=== PATIENT | male | born 1950 | race Hispanic/Latino ===

== ENCOUNTER 2019-08-21 06:09 | Day surgery (SDC) | payer BC ==
[2019-08-20 09:04] LABS: Absolute Lymphocytes (CBC) 1.5 K/uL (0.7-4.9); Basophils % 1.1 % (0-1.3); Hematocrit 41.1 % (39.6-49.0); MPV 7.1 fL (7.6-11.3); RBC Red Blood Cell Count 4.92 M/uL (4.33-5.43)
[2019-08-20 09:17] LABS: Potassium 4.5 mmol/L (3.5-5.1)
[2019-08-20 09:19] LABS: Protime INR 0.84
--- NOTE | 2019-08-20 11:17 | EKG ---
Test Date: 2019-08-20 Test Time: 08:52:25 Pool Lifeguard: STEPHANIE MEASUREMENT RESULTS: Intervals: Rate: 70 VA: 178 QRSD: 82 QT: 400 QTc: 432 Valencia: P: 30 VA: 178 QRS: -5 T: 52 INTERPRETIVE STATEMENTS: Normal sinus rhythm Normal ECG Compared to ECG 06/11/2019 12:13:49 No significant changes Electronically Signed On 08-20-19 11:16:02 WEBBING TACKER by Arnav Hardy
[2019-08-21] MEDS ORDERED: LIDOCAINE 1% MPF 30 ML VIAL ONE (06:41)
[2019-08-21] MEDS ORDERED: HEPA 1000U/500MLS 1,000 UNIT/500 ML BAG IV ONE ×2 (06:41→07:26)
[2019-08-21] MEDS ORDERED: HEPARIN 5000 UNIT/ML 1 ML VIAL ONE (06:41)
[2019-08-21] MEDS ORDERED: MIDAZOLAM HCL 2 MG/2 ML INJ ONE ×2 (07:34→07:39)
[2019-08-21] MEDS ORDERED: ATROPINE SULF 1 MG/10 ML SYR IV ONE (07:35)
[2019-08-21] MEDS ORDERED: FENTANYL CITR 100 MCG/2 ML ONE (07:35)
[2019-08-21 10:07] VITALS: BP 150/94; TEMP 97.2; O2SAT 100
--- NOTE | 2019-08-22 04:55 | OP ---
Surgeon: Arnav Hardy MD Greenskeeper: David Berry. Admitted to my service as an outpatient for abdominal angiogram and selective bilateral renal angiogr am. History: Mr. De is a 68-year-old male who had a questionable renal artery stenosis on a renal Dop pler, was scheduled for an abdominal angiogram today as an outpatient. Description Of Procedure: He was brought to the quality assurance qa lab analyst, prepped and draped in the routine sterile fashion. Given Versed and fentanyl for sedation. A 6-Swiss sheath introduced in the right common f emoral artery successfully. Angiography there was normal. StarClose was used to close the case. A pigtail catheter was advanced above the renal artery and the mid abdominal aorta. 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 To confirm that a JR4 was used to selectively inject the renals, both of which were perfectly normal. Complications: There were no complications. Blood Loss: 5 mL. Anesthesia: Total conscious sedation was 30 minutes. 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 Plan: Plan is to continue medical therapy. REKHA/MEI Voice ID: [id number] Report ID: [id number]
== END 2019-08-21 10:28 | disposition home health service (06) ==
LOC: CCL 06:09
DX: N28.0 Ischemia and infarction of kidney (principal); I10 Essential (primary) hypertension
CPT/HCPCS: 93005; 85025; 80048; 36415; 85610; 82947 ×2; 85730; 36200; 36252; C1893; J2250 ×2; J3010; J1644

== ENCOUNTER 2022-09-02 13:03 | Emergency (ER) | payer MEDICARE ==
--- OUTSIDE RECORDS SUMMARY | 2022-09-02 13:07 | XMS REPORT | Continuity of Care Document ---
:1950 Author Organization [facility] t Address [address] Britt [address] [place] [id number] Care Team Providers Name Role Phone Stiven Cristo Marion Attending Clinician Unavailable Alayna_S Attending Clinician Unavailable Sarah Latham Attending Clinician Alayna_Caio Admitting Clinician Unavailable Payers Payer Name Policy Type Policy Number Effective Date Expiration Date S serge [facility] [id number] 2021 (MEDICARE 00:00:00 REPLACEMENT HMO) Problems This patient has no known problems. Allergies, Adverse Reactions, Alerts This patient has no known allergies or adverse reactions. Medications This patient has no known medications. Procedures This patient has no known procedures. Encounters Start End Encounter Admission Attending Care Care Encounter Source Date/Time Date/Time Type Type Clinicians Facility Department ID 2022-08-17 Outpatient Saleem, [facility] [id number] Common 10:49:02 Cristo [facility] 2022-05-17 Outpatient Saleem, [facility] [id number] Common 12:05:17 Cristo [facility] 2022-05-11 Outpatient Saleem, [facility] [id number] Common 09:32:01 Cristo [facility] 2022-04-03 Outpatient Saleem, [facility] [id number] Common 11:20:01 Cristo [facility] 2022-03-14 Outpatient Saleem, [facility] [id number] Common 14:02:02 Cristo [facility] 2022-03-09 Outpatient Saleem, [facility] [id number] Common 14:23:00 Cristo [facility] 2021-09-07 Outpatient Saleem, [facility] [id number] Common 11:14:03 Cristo [facility] 2021-08-16 Outpatient Saleem, [facility] [id number] Common 14:26:22 Cristo [id number] [facility] 2021-08-16 Outpatient Saleem, [facility] [id number] Common 14:08:15 Cristo [id number] [facility] 2021-08-16 Outpatient Saleem, [facility] [id number] Common 14:03:00 Cristo 640[address] [facility] 2021-08-16 Outpatient Saleem, [facility] [id number] Common 14:02:22 Cristo 95596 [facility] 2021-08-16 Outpatient Saleem, [facility] [id number] Common 13:28:53 Cristo 64726 [facility] 2021-08-16 Outpatient Saleem, [facility] [id number] Common 13:08:05 Cristo 667[address] [facility] 2022-06-12 2022-06-12 Outpatient [facility] [id number] Devoted 00[facility]00:00 00:00:00 [id number] [facility] 2022-02-28 2022-02-28 SOCO Smith [id number] CLAC [id number] [facility] 16:30:00 17:30:00 Yeison [id number] [facility] [id number] 2022-02-02 2022-02-02 [facility] [id number] [facility]oted 03:03:00 03:03:00 [id number] [facility] 2021-08-17 2021-08-17 [facility] [id number] [facility] 12:00:00 12:00:00 Medica l Group Results This patient has no known results.
--- NOTE | 2022-09-02 13:24 | ER ---
Nurse's Notes [facility] Name: Mane De Age: 71 yrs Sex: Male : 1950 Arrival Date: 09/02/2022 Time: 13:04 Bed 11 Private MD: Diagnosis: Rash and other nonspecific skin eruption Presentation: 09/02 13:09 Chief complaint: Patient states: has a rash that started about a month ago, its on my ko1 back, legs, right arm, now its starting on my face/ears. Trying to get an appt with dermatology. Feels like ants on my back, I cant sleep. Coronavirus screen: At this time, the client does not indicate any symptoms associated with coronavirus-19. Ebola Screen: No symptoms or risks identified at this time. Initial Sepsis Screen: Does the patient meet any 2 criteria? No. Patient's initial sepsis screen is negative. Does the patient have a suspected source of infection? No. Patient's initial sepsis screen is negative. Risk Assessment: Do you want to hurt yourself or someone else? Patient reports no desire to harm self or others. Onset of symptoms was August 02, 2022 at 08:00. 13:09 Method Of Arrival: Ambulatory ko1 13:09 Acuity: KELLEN 4 ko1 Triage Assessment: 13:11 General: Appears in no apparent distress. comfortable, Behavior is calm, cooperative, ko1 appropriate for age. Pain:. Historical: - Allergies: 13:11 No Known Allergies; ko1 - PMHx: 13:11 Diabetes - NIDDM; Hypertension; TIA; ko1 - Immunization history:: Adult Immunizations up to date, Client reports receiving the 2nd dose of the Covid vaccine, Flu vaccine is up to date. - Social history:: Smoking status: Patient denies any tobacco usage or history of. Screenin:42 [facility] ED Fall Risk Assessment (Adult) Score/Fall Risk Level 0 - 2 = Low Risk ll1 Oriented to surroundings, Maintained a safe environment, Educated pt \T\ family on fall prevention, incl call for assistance when getting out of bed, Hourly rounding (assess needs \T\ fall precautionary measures) done. Abuse screen: Denies threats or abuse. Nutritional screening: No deficits noted. Tuberculosis screening: No symptoms or risk factors identified. Assessment: 13:42 Reassessment: No changes from previously documented assessment. Patient and/or family ll1 updated on plan of care and expected duration. Pain level reassessed. Patient is alert, oriented x 3, equal unlabored respirations, skin warm/dry/pink. Vital Signs: 13:11 BP 157 / 68; Pulse 82; Resp 18; Temp 97.9; Pulse Ox 98% ; Weight 70.31 kg; Height 5 ft. ko1 5 in. (165.10 cm); 13:11 Body Mass Index 25.79 (70.31 kg, 165.10 cm) ko1 ED Course: 13:04 Patient arrived in ED. rg4 13:05 Tomasa Sheldon F[facility]-C [facility] snw 13:05 Manolo Fields MD is Attending Physician. snw 13:11 Triage completed. ko1 13:11 Arm band placed on right wrist. Patient placed in an exam room. ko1 13:24 Sherri Mendoza RN is Primary Nurse. ll1 13:43 Patient has correct armband on for positive identification. Placed in gown. Bed in low ll1 position. Cardiac monitoring not applicable on this patient. 13:43 No provider procedures requiring assistance completed. Patient did not have IV access ll1 during this emergency room visit. Administered Medications: 13:30 Drug: DiFLUcan (fluconazole) 400 mg Route: PO; ll1 13:43 Follow up: Response: No adverse reaction ll1 Medication: 13:43 VIS not applicable for this client. ll1 Outcome: 13:23 Discharge ordered by . snw 13:43 Discharged to home ambulatory. ll1 13:43 Condition: stable 13:43 Discharge instructions given to patient, Instructed on discharge instructions, follow up and referral plans. medication usage, Demonstrated understanding of instructions, follow-up care, medications, Prescriptions given X 2. 13:43 Patient left the ED. ll1 Signatures: Tomasa Sheldon FNP-C FNP-Katelyn Tim rg4 Sherri Mendoza RN RN ll1 Mady Cummins RN RN ko1
--- NOTE | 2022-09-02 13:24 | EDPHYS ---
Physician Documentation [facility] Name: Mane De Age: 71 yrs Sex: Male : 1950 Arrival Date: 09/02/2022 Time: 13:04 Bed 11 Private MD: ED Physician Manolo Fields HPI: 09/02 13:29 This 71 yrs old Male presents to ER via Ambulatory with complaints of Rash. snw 13:29 The patient's rash thought to be caused by Psoriasis fungal component probable. The snw rash is located on the body diffusely. Onset: The symptoms/episode began/occurred 3.5 week(s) ago, and became persistent. Severity of symptoms: At their worst the symptoms were moderate severe. sees Dr. Saleem, has referral to Derm. Unable to sleep at night 2nd to pin prick like sensation. Historical: - Allergies: 13:11 No Known Allergies; ko1 - PMHx: 13:11 Diabetes - NIDDM; Hypertension; TIA; ko1 - Immunization history:: Adult Immunizations up to date, Client reports receiving the 2nd dose of the Covid vaccine, Flu vaccine is up to date. - Social history:: Smoking status: Patient denies any tobacco usage or history of. ROS: 13:29 Constitutional: Negative for fever, chills, and weight loss, Eyes: Negative for injury, snw pain, redness, and discharge, ENT: Negative for injury, pain, and discharge, Neck: Negative for injury, pain, and swelling, Cardiovascular: Negative for chest pain, palpitations, and edema. 13:29 Skin: Positive for rash. Exam: 13:28 Constitutional: This is a well developed, well nourished patient who is awake, alert, snw and in no acute distress. Head/Face: Normocephalic, atraumatic. Eyes: Pupils equal round and reactive to light, extra-ocular motions intact. Lids and lashes normal. Conjunctiva and sclera are non-icteric and not injected. Cornea within normal limits. Periorbital areas with no swelling, redness, or edema. ENT: Nares patent. No nasal discharge, no septal abnormalities noted. Tympanic membranes are normal and external auditory canals are clear. Oropharynx with no redness, swelling, or masses, exudates, or evidence of obstruction, uvula midline. Mucous membranes moist. Neck: Trachea midline, no thyromegaly or masses palpated, and no cervical lymphadenopathy. Supple, full range of motion without nuchal rigidity, or vertebral point tenderness. No Meningismus. Chest/axilla: Normal chest wall appearance and motion. Nontender with no deformity. No lesions are appreciated. 13:28 Respiratory: Lungs have equal breath sounds bilaterally, clear to auscultation and percussion. No rales, rhonchi or wheezes noted. No increased work of breathing, no retractions or nasal flaring. Abdomen/GI: Soft, non-tender, with normal bowel sounds. No distension or tympany. No guarding or rebound. No evidence of tenderness throughout. Back: No spinal tenderness. No costovertebral tenderness. Full range of motion. MS/ Extremity: Pulses equal, no cyanosis. Neurovascular intact. Full, normal range of motion. Neuro: Awake and alert, GCS 15, oriented to person, place, time, and situation. Cranial nerves II-XII grossly intact. Motor strength 5/5 in all extremities. Sensory grossly intact. Cerebellar exam normal. Normal gait. Psych: Awake, alert, with orientation to person, place and time. Behavior, mood, and affect are within normal limits. 13:28 Cardiovascular: Rate: normal, Pulses: no pulse deficits are appreciated, Heart sounds: murmur, systolic, grade 2 over 6. 13:28 Skin: Appearance: normal except for affected area, pityriasis rosea, ringworm, and is diffusely located, hemoglobin A1C 6.5 per report. Vital Signs: 13:11 BP 157 / 68; Pulse 82; Resp 18; Temp 97.9; Pulse Ox 98% ; Weight 70.31 kg; Height 5 ft. ko1 5 in. (165.10 cm); 13:11 Body Mass Index 25.79 (70.31 kg, 165.10 cm) ko1 MDM: 13:16 Patient medically screened. snw 13:31 Differential diagnosis: impetigo, varicella, allergic reaction, psoriasis, fungal. Data snw reviewed: vital signs, nurses notes. Counseling: I had a detailed discussion with the patient and/or guardian regarding: the historical points, exam findings, and any diagnostic results supporting the discharge/admit diagnosis, the presence of at least one elevated blood pressure reading (>120/80) during this emergency department visit, the need for outpatient follow up, for definitive care, to return to the emergency department if symptoms worsen or persist or if there are any questions or concerns that arise at home. Special discussion: I have referred the patient to see his PCP for further evaluation of high blood pressure. Based on the history and exam findings, there is no indication for further emergent testing or inpatient evaluation. I discussed with the patient/guardian the need to see the regional safety manager for further evaluation of the symptoms. I discussed with the patient/guardian the need to see the primary care provider for further evaluation of the symptoms. Administered Medications: 13:30 Drug: DiFLUcan (fluconazole) 400 mg Route: PO; ll1 13:43 Follow up: Response: No adverse reaction ll1 Disposition Summary: 09/02/22 13:23 Discharge Ordered Location: Home snw Condition: Stable snw Diagnosis - Rash and other nonspecific skin eruption snw Followup: snw - With: Emergency Department - When: As needed - Reason: Worsening of condition Followup: snw - With: Private Physician - When: 2 - 3 days - Reason: Recheck today's complaints, Continuance of care, Re-evaluation by your physician Discharge Instructions: - Discharge Summary Sheet snw - Rash, Adult snw Forms: - Medication Reconciliation Form snw - Thank You Letter snw - Antibiotic Education snw - Prescription Opioid Use snw Prescriptions: - Hydroxyzine HCl 25 mg Oral Tablet - take 1 tablet by ORAL route At bedtime As needed; 30 tablet; Refills: 0, snw Product Selection Permitted - Fluconazole 150 mg Oral Tablet - take 1 tablet by ORAL route once daily; 15 tablet; Refills: 0, Product snw Selection Permitted Signatures: Tomasa Sheldon, LEAD BI DEVELOPER-C LEAD BI DEVELOPER-Csnw Sherri Mendoza, RN RN ll1 Mady Cummins, RN RN ko1
[2022-09-02] MEDS ORDERED: FLUCONAZOLE 100 MG TAB ONE (13:29)
[2022-09-02 13:59] VITALS: BP 157/68; TEMP 97.9; O2SAT 98
== END 2022-09-02 13:43 | disposition home or self-care (01) ==
LOC: ER 13:03
DX: R21 Rash and other nonspecific skin eruption (principal); I10 Essential (primary) hypertension
CPT/HCPCS: 99283

== ENCOUNTER 2023-11-14 07:03 | Day surgery (SDC) | payer MEDICARE ==
[2023-11-05 10:22] LABS: Absolute Eosinophils 0.1 K/uL (0-0.5); Absolute Lymphocytes (CBC) 1.2 K/uL (0.7-4.9); Absolute Monocytes 0.3 K/uL (0.1-1.3); Absolute Neutrophil 2.2 K/uL (1.8-8.0); Basophils % 1.3 % (0-1.3); Eosinophils % 3.7 % (0-4.4); Hematocrit 30.7 % (39.6-49.0); Hemoglobin 10.4 g/dL (13.6-17.9); Lymphocytes % 30.1 % (15.3-44.8); MCH 29.9 pg (27.0-35.0); MCV 87.9 fL (80-100); Monocytes % 7.7 % (3.3-12.3); Neutrophils % 57.2 % (41.7-73.7); Nucleated Red Blood Cells % 0.1 % (0-0); Platelets 279 thou/uL (152-406); RBC Red Blood Cell Count 3.49 M/uL (4.33-5.43); Red Cell Distribution Width 13.9 % (12.1-15.2)
[2023-11-05 10:23] LABS: PT Prothrombin Time 10.5 SECONDS (9.5-12.5); Protime INR 0.95
[2023-11-05 10:30] LABS: Anion Gap 9.2 mEq/L (5.0-15.0); Potassium 4.2 mEq/L (3.5-5.1)
--- NOTE | 2023-11-05 10:36 | RAD REPORT ---
EXAM DESCRIPTION: RAD - Chest Pa And Lat (2 Views) - 11/05/2023 10:25 am CLINICAL HISTORY: pre op pending urolift and meatal dilations Chest pain. COMPARISON: Chest Pa And Lat (2 Views) dated 06/11/2019; Chest Pa And Lat (2 Views) dated 04/26/2017; CHEST SINGLE VIEW dated 11/24/2009; CHEST PA AND LAT 2 VIEW dated 11/19/2007 FINDINGS: The lungs are clear. The heart is normal in size. No displaced fractures. IMPRESSION: No acute or concerning finding suspected.
[2023-11-14] MEDS: NA CHLORIDE 0.9% 1,000 ML ONE (07:30)
[2023-11-14] MEDS ORDERED: LIDOCAINE 1% MPF 5 ML VIAL ONE (07:53)
[2023-11-14] MEDS ORDERED: propofoL 200 MG/20 ML VIAL IV ONE (07:53)
[2023-11-14] MEDS ORDERED: FENTANYL CITR 100 MCG/2 ML ONE (07:54)
[2023-11-14] MEDS ORDERED: MIDAZOLAM HCL 2 MG/2 ML INJ ONE (07:54)
[2023-11-14] MEDS: CEFAZOLIN SODIUM 1 GM/VIAL ONE (08:30)
[2023-11-14] MEDS ORDERED: ONDANSETRON 4 MG/2 ML VIAL ONE (08:39)
[2023-11-14] MEDS ORDERED: dexAMETHasone 10 MG/ML VIAL ONE (08:39)
[2023-11-14] MEDS: CODEINE 30MG/APAP 300MG TAB PO PRN (10:14)
[2023-11-14] MEDS: PHENAZOPYRIDINE 100MG TAB PO ONE (10:14)
[2023-11-14] MEDS ORDERED: CODEINE 30MG/APAP 300MG TAB ONE (10:17)
[2023-11-14] MEDS ORDERED: PHENAZOPYRIDINE 100MG TAB PO ONE ×2 (10:17→10:51)
[2023-11-14] MEDS ORDERED: CODEINE 30MG/APAP 300MG TAB PO PRN (10:51)
[2023-11-14 12:08] VITALS: BP 142/51; TEMP 97; O2SAT 96
--- NOTE | 2023-11-14 17:29 | EKG ---
Test Date: 2023-11-05 Test Time: 09:56:11 Smelter Operator: TRESA MEASUREMENT RESULTS: Intervals: Rate: 71 MN: 186 QRSD: 96 QT: 404 QTc: 439 Berry: P: 39 MN: 186 QRS: 4 T: 63 INTERPRETIVE STATEMENTS: Normal sinus rhythm with sinus arrhythmia Normal ECG Compared to ECG 08/20/2019 08:52:25 No significant changes Electronically Signed On 11-14-23 16:55:26 CDT by Julio Cesar Cole
--- NOTE | 2023-11-14 19:46 | OP ---
Surgeon: CAMELIA JOSÉ Preoperative Diagnosis: 1.Meatal stenosis. 2.BPH with obstruction/LUTS. Postoperative Diagnoses: 1.Meatal stenosis. 2.BPH with obstruction/LUTS. Principal Procedure: 1.Meatal dilation using sounds. 2.Meatotomy. 3.Cystoscopy and prostatic urethral lift/UroLift with 3 implants placed. Indication For Procedure: Mr. De presented to the Urology Clinic with obstructive LUTS refractory to attempts at medical therapy. He was found to have significant meatal stenosis and a degree of re sidual apical mid gland obstruction despite his history of a TURP or GreenLight PVP. As a result, he was counseled on the need to manage the obstruction due to the meatus and would also potentially rodolfo efit from additional management of the residual apical mid gland obstruction. Procedure In Detail: The patient was consented in the preoperative holding area before being transfe rred to the operative suite where general anesthesia was induced. He was given Ancef 1 g IV antimicr obial prophylaxis, and pneumo boots were provided for DVT prophylaxis. He was placed in the lithotom y position, padded and secured to the table appropriately. His genitalia were prepped with Hibiclens and he was draped in standard fashion. The case was begun attempting to pass the 20-Greek cystosco pe, but the meatus was completely stenotic. As a result, I utilized urethral sounds to dilate the me atus from 14-Greek to 26-Greek. I assessed during the period of dilation where the point of obstru ction was noting it to be in the ventral meatus extending into the fossa navicularis. As a result, I employed straight snaps extending about half a cm into the ventral aspect of the meatus and urethra to generate a region of crushed tissue hemostasis. I then incised the crushed tissue in between ulti mately opening the meatus, and making it widely patent such that passage of a 28-Greek sound went wi thout obstruction and with ease. Once I was satisfied with the patency of the meatus, I then placed the 20-Greek UroLift sheath with a visual obturator via the urethra and into his bladder. I decompr essed his bladder of fluid and urine and then surveyed the prostatic urethral channel. As previously indicated, there was patency at the bladder neck from prior resection but regrowth or residual adeno ma in the apical mid gland intraurethrally intruding and kissing with slight interdigitation. As a r esult, I switched the visual obturator for a UroLift delivery device and the first implant. I target ed the patient's left lateral wall in the apex of the prostate just proximal to the verumontanum wher e the tissue was most prominent. I manipulated the tissue in order to grasp the intraluminally proje cting component and ultimately angling the scope about 10 to 15 degrees laterally, I pulled the yanelis er the first time delivering the needle through the substance of the prostate before angling the scop e an additional 15 to 20 degrees laterally to compress that tissue and ensure the tip of the needle s ituated outside of the capsular surface. I then pulled the trigger a second time delivering the caps ular tab and partially retracting the needle before pulling the trigger a third time to completely re tract the needle and tension the suture. I then brought the scope back toward the midline and advanc ed it 2 to 3 mm toward the bladder neck opening before well until the white line of the monofilament was situated in the delivery bay, and then I pulled the trigger fourth time, tailoring the suture and deploying the urethral end piece. This did nicely lateralize that intruding tissue in the apical mi d gland on the left. I then turned my attention to the patient's right side and a similarly position ed intraluminally projecting adenoma, and I was able to place an additional implant using the same se quence of steps this time on the right at around the 10 o'clock position. This did beautifully later jagjit the tissue in that position. I then surveyed the channel created using a visual obturator and there was some anterolateral tissue intrusion coming from the patient's left side; so I placed an add itional implant in a stacked fashion on the patient's left above the prior placed implant beautifully elevating the tissue in that location and creating a beautiful continuous anterior channel visible f rom the verumontanum into the bladder neck without any obstruction and the bladder completely decompr essed. As a result, I retrograde filled his bladder with saline before removing the scope and then p assed a 20-Greek urethral Lynn catheter into his bladder with ease. About 15 cc of sterile water w ere placed in the balloon, and the catheter was allowed to decompress and connected to a leg bag. Th e patient was then taken out of the lithotomy position, awakened from general anesthesia, transferred to a stretcher, and then transferred to the recovery room in good condition. Complications: None. Discharge Disposition: He will be instructed on catheter care and maintenance and to cleanse around the meatus with dilute hydrogen peroxide or soap and water at least twice a day, applying Neosporin o r triple antibiotic ointment around the meatus liberally twice a day over the next several days. I w ould like for him to keep the catheter through the weekend and it may be removed on Saturday or Saturday of next week. I have given him a prescription for Bactrim Double Strength tablets for 5 days to cov er him the duration of having the catheter in place and because of the meatotomy performed. He may h ave a voiding trial as I indicated on Saturday and Saturday, and subsequent followup should be establish ed with me in approximately 1 month per routine. BRISEYDA/MEI Voice ID: [id number] Report ID: [id number]
== END 2023-11-14 11:10 | disposition home or self-care (01) ==
LOC: OR 07:03
PROVIDERS: ATTEND Urology
PROC: 0T7D8DZ Dilation of Urethra with Intraluminal Device, Via Natural or Artificial Opening Endoscopic (ICD-10-PCS; principal; 2023-11-14 08:15)
DX: N35.911 Unspecified urethral stricture, male, meatal (principal); N40.1 Benign prostatic hyperplasia with lower urinary tract symptoms; N13.8 Other obstructive and reflux uropathy
CPT/HCPCS: 36415; 71046; 80048; 82947; 85025; 85610; 87086; 87088; 93005; J0690; J1100; J2001; J2250; J2405; J2704; J3010; J7030

== ENCOUNTER 2024-10-07 19:18 | Inpatient (IN) | payer OTHER ==
--- OUTSIDE RECORDS SUMMARY | 2024-10-07 19:22 | XMS REPORT | Continuity of Care Document ---
Author Name Unknown Address [address] [facility] [address] [place] [address] [facility] [place] Address [address] [facility] [address] [place] [address] Care Team Providers Care Service Line Layer Name Role Phone Cristo Saleem Attending Clinician Unavailable Trisha Catalan Attending Clinician Emily Attending Clinician Unavailable Sarah Latham Attending Clinician [phone] Emily Admitting Clinician Unavailable Payers Payer Name Policy Type Policy Number Effective Date Expirati on Date Source [employer] (MEDICARE REPLACEMENT HMO) [id number] 00:00:00 Problems Condition Name Condition Details Condition Category Status Onset Date Resolution Date Last Treatment Date Treating Clinician Comments Source [id number] 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 Problem Common [facility] Enlarged prostate Enlarged prostate Problem Common [facility] Obstructiv e uropathy Other obstructiv e and reflux uropathy Problem Common [facility] [id number] Tobacco use disorder, continuous Problem Common [facility] [id number] Type 2 diabetes mellitus with hyperglyce zeferino, unspecifie d whether residential insulin use Problem Common [facility] [id number] Mixed hyperlipid emia Problem Common [facility] [id number] Asymptomat ic hypertensi ve urgency Problem Common [facility] [id number] Erectile dysfunctio n, unspecifie d erectile dysfunctio n type Problem [facility] [id number] Benign essential HTN Problem [facility] Cigarette smoker Cigarette smoker Problem [facility] Anemia in chronic kidney disease Anemia in chronic kidney disease Problem [facility] Chronic anemia Anemia in other chronic diseases classified elsewhere Problem [facility] Iron deficiency anemia due to chronic blood loss Iron deficiency anemia due to chronic blood loss Problem [facility] [id number] Benign prostatic hyperplasi a with lower urinary tract symptoms Problem [facility] [id number] Chronic kidney disease, stage 3a Problem [facility] [id number] Noncomplia nce with dietary restrictio n Problem [facility] [id number] Type 2 diabetes mellitus with diabetic chronic kidney disease Problem [facility] [id number] Type 2 diabetes mellitus with other diabetic kidney complicati on Problem [facility] [id number] Indirect left inguinal hernia Problem [facility] [id number] History of urethral stricture Problem [facility] [id number] OAB (overactiv e bladder) Problem [facility] [id number] Urge incontinen ce Problem [facility] [id number] ED (erectile dysfunctio n) of organic origin Problem [facility] Anemia Anemia, unspecifie d type Problem [facility] Social History Social Habit Start Date Stop Date Quantity Comments Source History of Tobacco Use Current Smoker [facility] Sex Assigned At [facility] Smoking Status Start Date Stop Date Source Current Smoker 2024-07-14 00:00:00 [facility] Medications Ordered Medication Name Filled Medication Name Start Date Stop Date Current Medication? Ordering Clinician Indication Dosage Frequency Signature (SIG) Comments Components Source Myrbetriq 25 MG Myrbetriq 25 MG 2023-07 00:00: 00 No 1{table t} QD Myrbetriq 25 MG Varenicline Tartrate 1 MG Varenicline Tartrate 1 MG 2022-07 1-15 00:00: 00 No 1{table t} BID Vareniclin e Tartrate 1 MG FreeStyle Precision Zack Test - FreeStyle Precision Zack Test - 2021-07 0-03 00:00: 00 No QD FreeStyle Precision Zack Test - FreeStyle Jayme 2 [place] - FreeStyle Jayme 2 [place] - 2021-07 0-03 00:00: 00 No FreeStyle Jayme 2 [place] - [place] Soluspan (Betamethas one) [place] Soluspan (Betamethas one) 9-13 00:00: 00 No 6mg [facility] Lidocaine Lidocaine 9-13 00:00: 00 No 10mg [facility] Cyanocobala min Cyanocobala min 7-25 00:00: 00 No 1000ug [facility] metformin hcl er 500 mg tablet er 24 hr metformin hcl er 500 mg tablet er 24 hr Yes [facility] glimepiride 4 mg tablet glimepiride 4 mg tablet Yes [facility] losartan potassium-h ctz 100-12.5 mg tablet losartan potassium-h ctz 100-12.5 mg tablet Yes [facility] Losartan Potassium-H CTZ 100-12.5 MG Losartan Potassium-H CTZ 100-12.5 MG No 1{table t} QD Losartan Potassium- HCTZ 100-12.5 MG Tadalafil 20 MG Tadalafil 20 MG No Tadalafil 20 MG amLODIPine Besylate 10 MG amLODIPine Besylate 10 MG No 1{table t} QD amLODIPine Besylate 10 MG metFORMIN HCl ER 500 MG metFORMIN HCl ER 500 MG No BID metFORMIN HCl ER 500 MG Rosuvastati n Calcium 20 MG Rosuvastati n Calcium 20 MG No 1{table t} QD Rosuvastat in Calcium 20 MG FreeStyle Jayme 2 Sensor - FreeStyle Jayme 2 Sensor - No FreeStyle Jayme 2 Sensor - Glimepiride 4 MG Glimepiride 4 MG No Glimepirid e 4 MG Ozempic (1 MG/DOSE) 4 MG/3ML Ozempic (1 MG/DOSE) 4 MG/3ML No Ozempic (1 MG/DOSE) 4 MG/3ML Creon [id number] 0 UNIT Creon [id number] 0 UNIT No Creon [id number] 00 UNIT Jardiance 25 MG Jardiance 25 MG No 1{table t} QD Jardiance 25 MG Hydrocortis one 2.5 % Hydrocortis one 2.5 % No Hydrocorti sone 2.5 % Tamsulosin HCl 0.4 MG Tamsulosin HCl 0.4 MG No Tamsulosin HCl 0.4 MG rosuvastati n calcium 20 mg tablet rosuvastati n calcium 20 mg tablet Yes [facility] varenicline tartrate (starter) 0.5 mg x 11 & 1 mg x 42 tab ther pack varenicline tartrate (starter) 0.5 mg x 11 & 1 mg x 42 tab ther pack Yes [facility] amlodipine besylate 10 mg tablet amlodipine besylate 10 mg tablet Yes [facility] tamsulosin hcl 0.4 mg capsule tamsulosin hcl 0.4 mg capsule Yes [facility] JARDIANCE 10 MG TABLET JARDIANCE 10 MG TABLET Yes [facility] Immunizations Ordered Immunization Name Filled Immunization Name Date Status Comments Source Prevnar 20 (PCV20) Prevnar 20 (PCV20) Unknown Completed [facility] Fluad (aIIV4) - SDS - 0.5mL Fluad (aIIV4) - SDS - 0.5mL Unknown Completed [facility] FLUZONE HIGH DOSE OVER 65 FLUZONE HIGH DOSE OVER 65 Unknown Completed [facility] Prevnar 20 (PCV20) Prevnar 20 (PCV20) Unknown Completed [facility] Fluad (aIIV4) - SDS - 0.5mL Fluad (aIIV4) - SDS - 0.5mL Unknown Completed [facility] FLUZONE HIGH DOSE OVER 65 FLUZONE HIGH DOSE OVER 65 Unknown Completed [facility] Prevnar 20 (PCV20) Prevnar 20 (PCV20) Unknown Completed [facility] Fluad (aIIV4) - SDS - 0.5mL Fluad (aIIV4) - SDS - 0.5mL Unknown Completed [facility] FLUZONE HIGH DOSE OVER 65 FLUZONE HIGH DOSE OVER 65 Unknown Completed [facility] Prevnar 20 (PCV20) Prevnar 20 (PCV20) Unknown Completed [facility] Fluad (aIIV4) - SDS - 0.5mL Fluad (aIIV4) - SDS - 0.5mL Unknown Completed [facility] FLUZONE HIGH DOSE OVER 65 FLUZONE HIGH DOSE OVER 65 Unknown Completed [facility] Prevnar 20 (PCV20) Prevnar 20 (PCV20) Unknown Completed [facility] Fluad (aIIV4) - SDS - 0.5mL Fluad (aIIV4) - SDS - 0.5mL Unknown Completed [facility] FLUZONE HIGH DOSE OVER 65 FLUZONE HIGH DOSE OVER 65 Unknown Completed [facility] Prevnar 20 (PCV20) Prevnar 20 (PCV20) Unknown Completed [facility] Fluad (aIIV4) - SDS - 0.5mL Fluad (aIIV4) - SDS - 0.5mL Unknown Completed [facility] FLUZONE HIGH DOSE OVER 65 FLUZONE HIGH DOSE OVER 65 Unknown Completed [facility] Prevnar 20 (PCV20) Prevnar 20 (PCV20) Unknown Completed [facility] Fluad (aIIV4) - SDS - 0.5mL Fluad (aIIV4) - SDS - 0.5mL Unknown Completed [facility] FLUZONE HIGH DOSE OVER 65 FLUZONE HIGH DOSE OVER 65 Unknown Completed [facility] Prevnar 20 (PCV20) Prevnar 20 (PCV20) Unknown Completed [facility] Fluad (aIIV4) - SDS - 0.5mL Fluad (aIIV4) - SDS - 0.5mL Unknown Completed [facility] FLUZONE HIGH DOSE OVER 65 FLUZONE HIGH DOSE OVER 65 Unknown Completed [facility] Prevnar 20 (PCV20) Prevnar 20 (PCV20) Unknown Completed [facility] Fluad (aIIV4) - SDS - 0.5mL Fluad (aIIV4) - SDS - 0.5mL Unknown Completed [facility] FLUZONE HIGH DOSE OVER 65 FLUZONE HIGH DOSE OVER 65 Unknown Completed [facility] Fluad (aIIV4) - SDS - 0.5mL Fluad (aIIV4) - SDS - 0.5mL Unknown Completed [facility] Prevnar 20 (PCV20) Prevnar 20 (PCV20) Unknown Completed [facility] Fluad (aIIV4) - SDS - 0.5mL Fluad (aIIV4) - SDS - 0.5mL Unknown Completed [facility] FLUZONE HIGH DOSE OVER 65 FLUZONE HIGH DOSE OVER 65 Unknown Completed [facility] Vital Signs Vital Name Observation Time Observation Value Comments S serge height 2024-07-14 09:45:00 65 [in_i] Commo n [facility] weight 2024-07-14 09:45:00 138 [lb_av] Comm on [facility] temperature 2024-07-14 09:45:00 97.8 [degF] Com [facility] bmi 2024-07-14 09:45:00 22.96 kg/m2 Comm on [facility] oximetry 2024-07-14 09:45:00 [facility] 2024-07-14 09:45:00 18 /min [facility] blood pressure systolic 2024-07-14 09:45:00 130 mm[Hg] [facility] blood pressure diastolic 2024-07-14 09:45:00 54 mm[Hg] [facility] height 2024-06-24 09:00:00 65 [in_i] Commo n [facility] weight 2024-06-24 09:00:00 137 [lb_av] Comm on [facility] temperature 2024-06-24 09:00:00 98.1 [degF] Com [facility] bmi 2024-06-24 09:00:00 22.8 kg/m2 Commo n [facility] oximetry 2024-06-24 09:00:00 99 % Commo n [facility] respiratory rate 2024-06-24 09:00:00 18 /min Common [facility] blood pressure systolic 2024-06-24 09:00:00 132 mm[Hg] [facility] blood pressure diastolic 2024-06-24 09:00:00 68 mm[Hg] [facility] height 2024-04-01 11:00:00 65 [in_i] Commo n [facility] weight 2024-04-01 11:00:00 131.4 [lb_av] Co mmon [facility] temperature 2024-04-01 11:00:00 97.6 [degF] Com [facility] bmi 2024-04-01 11:00:00 21.86 kg/m2 Comm on [facility] oximetry 2024-04-01 11:00:00 97 % Commo n [facility] blood pressure systolic 2024-04-01 11:00:00 132 mm[Hg] [facility] blood pressure diastolic 2024-04-01 11:00:00 72 mm[Hg] [facility] height 2024-04-01 11:00:00 65 [in_i] Commo n [facility] weight 2024-04-01 11:00:00 131.4 [lb_av] Co mmon [facility] temperature 2024-04-01 11:00:00 97.6 [degF] Com [facility] bmi 2024-04-01 11:00:00 21.86 kg/m2 Comm on [facility] oximetry 2024-04-01 11:00:00 97 % Commo n [facility] blood pressure systolic 2024-04-01 11:00:00 132 mm[Hg] Common [facility] blood pressure diastolic 2024-04-01 11:00:00 72 mm[Hg] [facility] height 2023-12-31 09:20:00 65 [in_i] Commo n [facility] weight 2023-12-31 09:20:00 142.2 [lb_av] Co mmon [facility] temperature 2023-12-31 09:20:00 97.2 [degF] Com [facility] bmi 2023-12-31 09:20:00 23.66 kg/m2 Comm on [facility] oximetry 2023-12-31 09:20:00 97 % Commo n [facility] blood pressure systolic 2023-12-31 09:20:00 118 mm[Hg] Common [facility] blood pressure diastolic 2023-12-31 09:20:00 52 mm[Hg] Common [facility] height 2023-12-31 09:20:00 65 [in_i] Commo n [facility] weight 2023-12-31 09:20:00 142.2 [lb_av] Co [facility] temperature 2023-12-31 09:20:00 97.2 [degF] Com [facility] bmi 2023-12-31 09:20:00 23.66 kg/m2 Comm on [facility] oximetry 2023-12-31 09:20:00 97 % Commo n [facility] blood pressure systolic 2023-12-31 09:20:00 118 mm[Hg] [facility] blood pressure diastolic 2023-12-31 09:20:00 52 mm[Hg] [facility] height 2023-12-23 10:45:00 65 [in_i] Commo n [facility] weight 2023-12-23 10:45:00 148.2 [lb_av] Co mmon [facility] temperature 2023-12-23 10:45:00 96.8 [degF] Com mon [facility] bmi 2023-12-23 10:45:00 24.66 kg/m2 Comm on [facility] oximetry 2023-12-23 10:45:00 97 % Commo n [facility] respiratory rate 2023-12-23 10:45:00 18 /min Common [facility] blood pressure systolic 2023-12-23 10:45:00 142 mm[Hg] [facility] blood pressure diastolic 2023-12-23 10:45:00 71 mm[Hg] [facility] height 2023-10-23 10:30:00 65 [in_i] Commo n [facility] weight 2023-10-23 10:30:00 137.8 [lb_av] Co mmon [facility] temperature 2023-10-23 10:30:00 97.8 [degF] Com [facility] bmi 2023-10-23 10:30:00 22.93 kg/m2 Comm on [facility] oximetry 2023-10-23 10:30:00 99 % Commo n [facility] respiratory rate 2023-10-23 10:30:00 18 /min [facility] blood pressure systolic 2023-10-23 10:30:00 155 mm[Hg] [facility] blood pressure diastolic 2023-10-23 10:30:00 67 mm[Hg] Common [facility] height 2023-08-19 10:20:00 65 [in_i] Commo n [facility] weight 2023-08-19 10:20:00 135.0 [lb_av] Co mmon [facility] temperature 2023-08-19 10:20:00 98.0 [degF] Com mon [facility] bmi 2023-08-19 10:20:00 22.46 kg/m2 Comm on [facility] oximetry 2023-08-19 10:20:00 99 % Commo n [facility] respiratory rate 2023-08-19 10:20:00 18 /min Common [facility] blood pressure systolic 2023-08-19 10:20:00 138 mm[Hg] Common [facility] blood pressure diastolic 2023-08-19 10:20:00 70 mm[Hg] Common [facility] height 2023-08-08 16:45:00 65 [in_i] Commo n [facility] weight 2023-08-08 16:45:00 139.6 [lb_av] Co mmon [facility] temperature 2023-08-08 16:45:00 98.3 [degF] Com mon [facility] bmi 2023-08-08 16:45:00 23.23 kg/m2 Comm on [facility] oximetry 2023-08-08 16:45:00 97 % Commo n [facility] respiratory rate 2023-08-08 16:45:00 18 /min [facility] blood pressure systolic 2023-08-08 16:45:00 142 mm[Hg] [facility] blood pressure diastolic 2023-08-08 16:45:00 68 mm[Hg] [facility] Procedures Procedure Date / Time Performed Performing Clinicia n Source PVR 2024-06-24 00:00:00 Common S [facility] PVR 2023-12-23 00:00:00 [facility] PVR 2023-08-08 00:00:00 [facility] Encounters Start Date/Time End Date/Time Encounter Type Admission Type Attending Clinicians Care Facility Care Department Encounter ID Source 2024-09-01 16:12:[address] [facility] [id number] [facility] 2024-07-14 10:27:00 Outpatient Saleem, Cristo [facility] [id number] [facility] 2024-03-30 16:24:00 Outpatient Saleem, Cristo [facility] [id number] [facility] 2023-08-15 13:29:01 Outpatient Saleem, Cristo [facility] [id number] [facility] 2023-08-08 16:13:00 Outpatient Saleem, Cristo [facility] [id number] [facility] 2023-05-15 14:39:00 Outpatient Saleem, Cristo [facility] [id number] [facility] 2023-04-12 16:51:00 Outpatient Saleem, Cristo [facility] [id number] [facility] 2023-02-12 08:57:00 Outpatient Saleem, Cristo [facility] [id number] [facility] 2022-11-07 10:35:00 Outpatient Saleem, Cristo [facility] [id number] [facility] 2022-08-17 10:49:02 Outpatient Saleem, Cristo [facility] [id number] [facility] 2022-05-17 12:05:17 Outpatient Saleem, Cristo [facility] [id number] [facility] 2022-05-11 09:32:01 Outpatient Saleem, Cristo [facility] [id number] [facility] 2022-04-03 11:20:01 Outpatient Saleem, Cristo [facility] [id number] [facility] 2022-03-14 14:02:02 Outpatient Saleem, Cristo [facility] [id number] [facility] 2022-03-09 14:23:00 Outpatient Saleem, Cristo [facility] [id number] [facility] 2021-09-07 11:14:03 Outpatient Saleem, Cristo [facility] [id number] [facility] 2021-08-16 14:26:22 Outpatient Saleem, Cristo [facility] [id number] [facility] 2021-08-16 14:08:15 Outpatient Saleem, Cristo [facility] [id number] [facility] 2021-08-16 14:03:00 Outpatient Saleem, Cristo STLC [facility] [id number] [facility] 2021-08-16 14:02:22 Outpatient Saleem, Cristo STLC [facility] [id number] [facility] 2021-08-16 13:28:53 Outpatient Saleem, Cristo [facility] [id number] [facility] 2021-08-16 13:08:05 Outpatient Saleem, Cristo [facility] [id number] [facility] 2024-09-01 00:00:00 2024-09-01 00:00:00 (TEL) [facility]C [facility] [id number] [facility] 2024-08-27 00:00:00 2024-08-27 00:00:00 (TEL) [facility] [id number] [facility] 2024-07-14 00:00:00 2024-07-14 00:00:00 (TEL) [facility]C [facility] [id number] [facility] 2024-07-14 00:00:00 2024-07-14 00:00:00 OFFICE VISIT ESTAB PT LEVEL 4 [facility] [id number] [facility] 2024-06-24 00:00:00 2024-06-24 00:00:00 OFFICE VISIT ESTAB PT LEVEL 4 [facility] [id number] [facility] 2024-06-22 00:00:00 2024-06-22 00:00:00 (TEL) ST[facility]C [facility] [id number] [facility] 2024-05-26 10:30:00 2024-05-26 11:00:00 D2Me Check-in Sera Iyanoye [id number] [address] [place] [address] 2024-05-04 00:00:00 2024-05-04 00:00:00 (TEL) STLMLC [facility] [id number] [facility] 2024-04-22 00:00:00 2024-04-22 00:00:00 (TEL) [facility]C [facility] [id number] [facility] 2024-04-21 00:00:00 2024-04-21 00:00:00 (TEL) ST[facility]C [facility] [id number] [facility] 2024-04-20 00:00:00 2024-04-20 00:00:00 (TEL) ST[facility]MLC [facility] [id number] [facility] 2024-04-07 00:00:00 2024-04-07 00:00:00 (TEL) STLMLC [facility] [id number] [facility] 2024-04-03 00:00:00 2024-04-03 00:00:00 (TEL) ST[facility]MLC ST[facility] [id number] [facility] 2024-04-01 00:00:00 2024-04-01 00:00:00 OFFICE VISIT ESTAB PT LEVEL 4 [facility] [id number] [facility] 2024-04-01 00:00:00 2024-04-01 00:00:00 (TEL) STLMLC ST[facility] [id number] [facility] 2024-01-20 00:00:00 2024-01-20 00:00:00 (TEL) ST[facility]C [facility] [id number] [facility] 2024-01-15 00:00:00 2024-01-15 00:00:00 (TEL) STLMLC ST[facility] [id number] [facility] 2023-12-31 00:00:00 2023-12-31 00:00:00 OFFICE VISIT ESTAB PT LEVEL 4 [facility] [id number] [facility] 2023-12-31 00:00:00 2023-12-31 00:00:00 SUB ANNUAL [facility] VISIT [facility] [id number] [facility] 2023-12-23 00:00:00 2023-12-23 00:00:00 OFFICE VISIT ESTAB PT LEVEL 3 [facility] [id number] [facility] 2023-11-19 00:00:00 2023-11-19 00:00:00 (TEL) STLMLC ST[facility] [id number] [facility] 2023-11-18 00:00:00 2023-11-18 00:00:00 OFFICE VISIT ESTAB PT LEVEL 1 [facility] [id number] [facility] 2023-11-11 00:00:00 2023-11-11 00:00:00 (TEL) STLMLC ST[facility] [id number] [facility] 2023-11-06 00:00:00 2023-11-06 00:00:00 (TEL) STLMLC ST[facility]C [id number] [facility] 2023-10-23 00:00:00 2023-10-23 00:00:00 OFFICE VISIT ESTAB PT LEVEL 4 [facility] [id number] [facility] 2023-10-09 00:00:00 2023-10-09 00:00:00 (TEL) STLMLC ST[facility]C [id number] [facility] 2023-10-09 00:00:00 2023-10-09 00:00:00 (TEL) STLMLC ST[facility]C [id number] [facility] 2023-08-19 00:00:00 2023-08-19 00:00:00 OFFICE VISIT ESTAB PT LEVEL 4 [facility]C ST[facility]C [id number] [facility] 2023-08-08 00:00:00 2023-08-08 00:00:00 OFFICE VISIT ESTAB PT LEVEL 4 [facility] [id number] [facility] 2022-06-12 00:00:00 2022-06-12 00:00:00 Outpatient Iyanoye_S [facility] [id number] [facility] 2022-06-12 00:00:00 2022-06-12 00:00:00 Outpatient Iyanoye_S [facility] [id number] [facility] 2022-06-12 00:00:00 2022-06-12 00:00:00 Outpatient Iyanoye_S [facility] [id number] [facility] 2022-02-28 16:30:00 2022-02-28 17:30:00 SOCO [place] [id number] [id number] [facility] 2022-02-02 03:03:00 2022-02-02 03:03:00 [facility]patient [facility] [id number] [facility] 2021-08-17 12:00:00 2021-08-17 12:00:00 Outpatient [facility] [id number] [facility] Results Test Description Test Time Test Comments Results Result Co mments Source Notes Date/Time Note Provider Source 2024-05-26 10:30:00 ASSESSMENT SUMMARY MANE CENTENO is a 73 year old man seen today by [facility] for a [facility] Visit. Members Preferred Language Belarusian Patient Currently Located in their home state of [place], YES DIAGNOSIS [id number] - Body mass index [BMI] 22.0-22.9, [id number] - Essential (primary) hypertension VISIT PURPOSE, PATIENT'S GOALS, & AGENDA SETTING Annual Wellness Visit with PCP completed this year?: AWV already completed MEDICATION RECONCILIATION Did you review the patient's prescription and non-prescription drugs, vitamins, herbal remedies, and other supplements, AND is the accompanying medication list documented in the medical record?: No GENERAL ASSESSMENT Feet: 5 Inches: 5 Pounds: 135 Patient BMI: 22.46 Dx: Z68.22 - Body mass index [BMI] 22.0-22.9, adult Notes for Z68.22: BMI _22.46__ Your BMI is considered normal. Continue diabetic diet and exercise. Encouraged Mbr to use walking as a form of exercise. Systolic Blood Pressure: 146 Diastolic Blood Pressure: 68 General Assessment Notes: bp lo05-25-2024; 148/68 05-24-2024; 154/76 spoke to mbr about htn program Vaccinations (FLU) Confirm: MEMBER HAS COMPLETED ANNUAL FLU VACCINE: MEMBER CONFIRMED MEDICATION REFILLS Please confirm: Are any of the medications listed above within 30 days of their next fill date, or past due of their next fill date?: No IMMUNODEFICIENCY Does patient CURRENTLY take a drug that suppresses the immune system?: No SKIN - Ulcers Does patient CURRENTLY have a skin ulcer?: No COMMON DIAGNOSES The patient has a diagnosis of hypertension: Yes In addition to hypertension, the patient has the following condition(s): None of These Dx: I10 - Essential (primary) hypertension Notes for I10: Compliant with: losartan-hctz Current blood pressure noted to be uncontrolled today Denies s/s of chest pain, Counseled on maintaining a low sodium diet and increased exercise regimen as tolerated Referred to htn program HTN managed by PCPDISCUSSED: Educated patient on lifestyle modifications such as diet and exercise to improve blood pressureDISCUSSED: Educated patient on importance of medication adherence for blood pressure control APPOINTMENT CPT CODE* Please indicate how this visit was conducted: Telephone Visit Time: More than 20 minutes Trisha Catalan [facility], [place]
[2024-10-07] MEDS ORDERED: ACETAMINOPHEN 500 MG TAB ONE (19:46)
[2024-10-07] MEDS ORDERED: ONDANSETRON 4 MG/2 ML VIAL ONE ×2 (19:46→23:20)
[2024-10-07] MEDS ORDERED: NA CHLORIDE 0.9% 1,000 ML ONE (19:47)
[2024-10-07] MEDS ORDERED: MORPHINE 4 MG/ML SYR ONE (19:47)
[2024-10-07 20:09] LABS: Absolute Basophils 0.1 K/uL (0-0.5); Absolute Monocytes 1.4 K/uL (0.1-1.3); Absolute Neutrophil 20.2 K/uL (1.8-8.0); Basophils % 0.2 % (0-1.3); Hemoglobin 13.4 g/dL (13.6-17.9); Lymphocytes % 4.4 % (15.3-44.8); MCH 30.7 pg (27.0-35.0); MCHC 34.3 g/dL (32.0-36.0); MCV 89.4 fL (80-100); MPV 7.4 fL (7.6-11.3); Neutrophils % 89.4 % (41.7-73.7); Platelets 274 thou/uL (152-406); RBC Red Blood Cell Count 4.36 M/uL (4.33-5.43); Red Cell Distribution Width 14.3 % (12.1-15.2)
[2024-10-07 20:18] LABS: PT Prothrombin Time 12.1 SECONDS (10-13.0); PTT, Activated Partial Thromb 32.4 SECONDS (27.2-37.4); Protime INR 1.06
[2024-10-07 20:25] LABS: Specific Gravity > 1.030 (1.005-1.030); Sqamous Epithelial None Seen /HPF (None Seen); Urine Bacteria None Seen /HPF (<20); Urine Bilirubin NEGATIVE (Negative); Urine Blood 1+ (Negative); Urine Clarity Extremely Turbid (Clear); Urine Color Yellow (Yellow); Urine Crystals Unidentified Few /HPF (None Seen); Urine Culture Reflex Order NOT NEEDED; Urine Glucose 1+ (Negative); Urine Ketones 1+ (Negative); Urine Microscopic Reflex YN ORDER UMIC; Urine Mucus 1+ /HPF (None Seen); Urine Nitrite NEGATIVE (Negative); Urine Protein 3+ (Negative); Urine RBC <5 /HPF (None Seen); Urine Urobilinogen Normal (Normal); Urine WBC <5 /HPF (<5); Urine WBC Clump Rare /HPF (None Seen); Urine Yeast (Budding) Trace /HPF (None Seen)
[2024-10-07 20:26] LABS: Albumin 2.6 g/dL (3.4-5.0); Albumin/Globulin Ratio 0.7 (1.1-1.8); Alkaline Phosphatase 111 U/L (45-117); Anion Gap 10.7 mEq/L (5.0-15.0); BUN Blood Urea Nitrogen 14 mg/dL (7-18); Bicarbonate 25 mEq/L (21-32); Bilirubin Total 0.6 mg/dL (0.2-1.0); Globulin 3.5 g/dL (2.3-3.5); Glomerular Filtration Rate 69 ml/min (=/>90); Glucose Level 210 mg/dL (74-106); Lipase 18 U/L (13-75); Potassium 3.7 mEq/L (3.5-5.1); Protein, Total 6.1 g/dL (6.4-8.2); Sodium Level 135 mEq/L (136-145)
[2024-10-07 20:28] LABS: ALT/SGPT < 14 U/L (16-61); AST/SGOT < 10 U/L (15-37)
--- NOTE | 2024-10-07 21:21 | ER ---
Nurse's Notes [facility] Name: Mane De Age: 74 yrs Sex: Male : 1950 Arrival Date: 10/07/2024 Time: 19:18 Bed 7 Private MD: Diagnosis: Acute appendicitis with localized peritonitis;Severe sepsis without septic shock Presentation: 10/07 19:39 Chief complaint: Patient states: LOWER ABDOMINAL PAIN, DIARRHEA, SUBJECTIVE FEVER, AND cm10 GENERALIZED WEAKNESS ONSET 3 DAYS AGO. Coronavirus screen: Client denies travel out of the [place] in the last 14 days. Ebola Screen: Patient denies travel to an Ebola-affected area in the 21 days before illness onset. Initial Sepsis Screen: Does the patient meet any 2 criteria? HR > 90 bpm. Does the patient have a suspected source of infection? No. Patient's initial sepsis screen is negative. Risk Assessment: Do you want to hurt yourself or someone else? Patient reports no desire to harm self or others. Onset of symptoms was October 07, 2024. 19:39 Method Of Arrival: Ambulatory cm10 19:39 Acuity: KELLEN 3 cm10 Triage Assessment: 19:41 General: Appears uncomfortable, Behavior is calm, cooperative. Neuro: No deficits cm10 noted. Level of Consciousness is awake, alert, obeys commands, Oriented to person, place, time, situation, Appropriate for age. Respiratory: No deficits noted. Airway is patent Respiratory effort is even, unlabored, Respiratory pattern is regular, symmetrical. Historical: - Allergies: 19:41 No Known Allergies; cm10 - PMHx: 19:41 Diabetes - NIDDM; Hypertension; TIA; cm10 - Immunization history:: Adult Immunizations up to date. - Infectious Disease History:: Denies. - Social history:: Smoking status: Patient denies any tobacco usage or history of. Screenin:29 [facility] ED Fall Risk Assessment (Adult) History of falling in the last 3 months, dd2 including since admission No falls in past 3 months (0 pts) Confusion or Disorientation No (0 pts) Intoxicated or Sedated No (0 pts) Impaired Gait No (0 pts) Mobility Assist Device Used No (0 pt) Altered Elimination No (0 pt) Score/Fall Risk Level 0 - 2 = Low Risk Oriented to surroundings, Maintained a safe environment, Educated pt \T\ family on fall prevention, incl call for assistance when getting out of bed, Assessed \T\ reinforced patient's understanding of fall precautions, Hourly rounding (assess needs \T\ fall precautionary measures) done. Abuse screen: Denies threats or abuse. Denies injuries from another. Nutritional screening: No deficits noted. Tuberculosis screening: No symptoms or risk factors identified. Assessment: 19:39 General: CODE SEPSIS CALLED AT THIS TIME.. cm10 20:29 General: Appears in no apparent distress. uncomfortable, Behavior is calm, cooperative, dd2 appropriate for age. Pain: Complains of pain in suprapubic area and right lower quadrant Pain does not radiate. Pain currently is 6 out of 10 on a pain scale. Quality of pain is described as crampy, Pain began 2-3 days ago. Neuro: Guerrero Agitation-Sedation Scale (RASS): 0 - Alert and Calm Level of Consciousness is awake, alert, obeys commands, Oriented to person, place, time, situation, Appropriate for age. Cardiovascular: Heart tones S1 S2 present Capillary refill < 3 seconds JVD is absent Patient's skin is warm and dry. Respiratory: Airway is patent Respiratory effort is even, unlabored, Respiratory pattern is regular, symmetrical, Breath sounds are clear bilaterally. GI: Abdomen is flat, non-distended, Bowel sounds present X 4 quads. Abdomen is tender to palpation in suprapubic area and right lower quadrant Reports lower abdominal pain, diarrhea, nausea. : Urine is cloudy, Reports burning with urination. EENT: No deficits noted. No signs and/or symptoms were reported regarding the EENT system. Derm: No deficits noted. No signs and/or symptoms reported regarding the dermatologic system. Skin is healthy with good turgor, Skin is dry, Skin is normal, Skin temperature is warm. Musculoskeletal: Circulation, motion, and sensation intact. Range of motion: intact in all extremities. Vital Signs: 19:39 BP 179 / 82; Pulse 111; Resp 20; Temp 100.4; Pulse Ox 97% on R/A; Weight 61.23 kg; cm10 Height 5 ft. 5 in. ; Pain 8/10; 20:04 BP 174 / 79; Pulse 106; Resp 16; Pulse Ox 96% on R/A; Pain 6/10; dd2 20:40 BP 163 / 73; Pulse 94; Resp 16; Pulse Ox 96% on R/A; dd2 21:30 BP 157 / 71; Pulse 90; Resp 16; Temp 99.8; Pulse Ox 100% on R/A; vc1 22:10 BP 145 / 69; Pulse 92; Resp 16; Pulse Ox 98% on R/A; Pain 4/10; dd2 19:39 Body Mass Index 22.46 (61.23 kg, 165.1 cm) cm10 19:39 Pain Scale: Adult cm10 20:04 Pain Scale: Adult dd2 22:10 Pain Scale: Adult dd2 [place] Coma Score: 20:29 Eye Response: spontaneous(4). Motor Response: obeys commands(6). Verbal Response: dd2 oriented(5). Total: 15. ED Course: 19:20 Patient arrived in ED. im 19:21 Lauryn Santiago PA-C is PHCP. sb4 19:21 Yang aSleem MD is Attending Physician. sb4 19:41 Triage completed. cm10 19:41 Arm band placed on right wrist. Patient placed in an exam room, on a stretcher. cm10 19:50 Abida Bell, RN is Primary Nurse. kd3 19:50 First set of blood cultures drawn by me. vk 20:05 Blood Culture Adult (2) Sent. vk 20:05 CBC with Diff Sent. vk 20:05 CMP Sent. vk 20:05 Lactate w/ 2H reflex if indic. Sent. vk 20:05 Protime (+inr) Sent. vk 20:05 Ptt, Activated Sent. vk 20:05 Initial lab(s) drawn, by me, sent to lab. Inserted saline lock: 20 gauge in left vk antecubital area, using aseptic technique. Blood collected. Flushed with 10 mL NS. 20:05 Second set of blood cultures drawn by me. vk 20:06 EKG done, by ED staff. vk 20:29 Patient has correct armband on for positive identification. Bed in low position. Call dd2 light in reach. Side rails up X2. Client placed on continuous cardiac and pulse oximetry monitoring. NIBP monitoring applied. library monitor on. Door closed. Noise minimized. Pillow given. Verbal reassurance given. 20:29 No provider procedures requiring assistance completed. Patient maintains SpO2 dd2 saturation greater than 95% on room air. 21:08 CT Abd/Pelvis - IV Contrast Only In Process Unspecified. EDMS 21:19 Prince Gerardo MD is Hospitalizing Provider. sb4 21:20 Hospitalizing Provider role handed off by Prince Gerardo MD sb4 21:20 Ricki Patel MD is Hospitalizing Provider. sb4 22:02 Lactate w/ 2H reflex if indic.: at 2200 Sent. dd2 22:17 Patient admitted, IV remains in place. vc1 22:18 Provided Education on: surgery by ORAL AND MAXILLOFACIAL SURGERY RESIDENT. vc1 Administered Medications: 20:15 Drug: NS 0.9% IV 1000 ml IV at 1000 ml once; to be given as a bolus over 60 minutes dd2 Route: IV; Rate: 1000 ml; Site: left antecubital; 21:15 Follow up: IV Status: Completed infusion; IV Intake: 1000ml vc1 20:15 Drug: morphine IVP or IV 4 mg IVP once over 4 mins Route: IVP; Infused Over: 4 mins; dd2 Site: left antecubital; 20:30 Follow up: Response: No adverse reaction dd2 20:15 Drug: Ondansetron IVP 4 mg IVP once; over 2 minutes Route: IVP; Site: left antecubital; dd2 20:30 Follow up: Response: No adverse reaction dd2 20:15 Drug: Acetaminophen PO 1000 mg PO once Route: PO; dd2 20:45 Follow up: Response: No adverse reaction vc1 21:34 Drug: Piperacillin-Tazobactam IVPB 3.375 grams IVPB once over 60 mins; (mix in NS 100 dd2 mL) Route: IVPB; Infused Over: 60 mins; Site: left antecubital; 22:17 Follow up: IV Status: Infusion continued upon admission vc1 Medication: 20:29 VIS not applicable for this client. dd2 Intake: 21:15 IV: 1000ml; Total: 1000ml. vc1 Outcome: 21:21 Decision to Hospitalize by Provider. sb4 22:18 Admitted to OR accompanied by nurse, via wheelchair, with chart, vc1 22:18 Condition: stable 22:18 Instructed on the need for admit, Demonstrated understanding of instructions, 22:19 Patient left the ED. vc1 Signatures: Dispatcher [facility] SystemAbida Carty RN RN kd3 Jazmyne Betts, RN RN vc1 Lauryn Santiago, PA-C PA-C sb4 Brenda Campos Clarissa, RN RN cm10 Madhavi Ruelas DIANA RN RN dd2
--- NOTE | 2024-10-07 21:21 | EDPHYS ---
Physician Documentation [facility] Name: Mane De Age: 74 yrs Sex: Male : 1950 Arrival Date: 10/07/2024 Time: 19:18 Bed 7 Private MD: ED Physician Yang Saleem HPI: 10/07 20:29 This 74 yrs old Male presents to ER via Ambulatory with complaints of sb4 Abdominal Pain, General Weakness. 20:29 The patient presents with abdominal pain right lower quadrant. Onset: The sb4 symptoms/episode began/occurred 3 day(s) ago. The symptoms do not radiate. Associated signs and symptoms: Pertinent positives: diarrhea, weakness. The symptoms are described as sharp. The patient has not recently seen a physician. Historical: - Allergies: 19:41 No Known Allergies; cm10 - PMHx: 19:41 Diabetes - NIDDM; Hypertension; TIA; cm10 - Immunization history:: Adult Immunizations up to date. - Infectious Disease History:: Denies. - Social history:: Smoking status: Patient denies any tobacco usage or history of. ROS: 20:29 Constitutional: Negative for fever, chills, and weight loss, sb4 20:29 Abdomen/GI: Positive for abdominal pain, diarrhea, 20:29 Neuro: Positive for weakness, 20:29 All other systems are negative, Exam: 20:29 Head/Face: Normocephalic, atraumatic. Eyes: Extra-ocular motions intact. Periorbital sb4 areas with no swelling, redness, or edema. ENT: Mucous membranes moist. Respiratory: No increased work of breathing, no retractions or nasal flaring. Skin: Warm, dry with normal turgor. Normal color with no rashes, no lesions, and no evidence of cellulitis. 20:29 Constitutional: The patient appears alert, awake, uncomfortable, 20:29 Cardiovascular: Rate: tachycardic, Rhythm: regular, 20:29 Abdomen/GI: Inspection: abdomen appears normal, Bowel sounds: normal, Palpation: soft, moderate abdominal tenderness, in the suprapubic area and right lower quadrant, rebound tenderness, is appreciated in the right lower quadrant, involuntary guarding, is elicited in the right lower quadrant, Indicators: McBurney's point is tender, Vital Signs: 19:39 BP 179 / 82; Pulse 111; Resp 20; Temp 100.4; Pulse Ox 97% on R/A; Weight 61.23 kg; cm10 Height 5 ft. 5 in. ; Pain 8/10; 20:04 BP 174 / 79; Pulse 106; Resp 16; Pulse Ox 96% on R/A; Pain 6/10; dd2 20:40 BP 163 / 73; Pulse 94; Resp 16; Pulse Ox 96% on R/A; dd2 21:30 BP 157 / 71; Pulse 90; Resp 16; Temp 99.8; Pulse Ox 100% on R/A; vc1 22:10 BP 145 / 69; Pulse 92; Resp 16; Pulse Ox 98% on R/A; Pain 4/10; dd2 19:39 Body Mass Index 22.46 (61.23 kg, 165.1 cm) cm10 19:39 Pain Scale: Adult cm10 20:04 Pain Scale: Adult dd2 22:10 Pain Scale: Adult dd2 [place] Coma Score: 20:29 Eye Response: spontaneous(4). Motor Response: obeys commands(6). Verbal Response: dd2 oriented(5). Total: 15. MDM: 19:21 Medical Screening Exam initiated sb4 21:21 Data reviewed: vital signs, nurses notes, lab test result(s), EKG, radiologic studies, sb4 and as a result, I will admit patient. Management of patient was discussed with the following: Supervisor [employer]: Dr. Reno, will take to OR tonight. Historians other than the Patient: Daughter/Son: daughter. Counseling: I had a detailed discussion with the patient and/or guardian regarding the historical points, exam findings, and any diagnostic results supporting the discharge/admit diagnosis, the presence of at least one elevated blood pressure reading (>120/80) during this emergency department visit, lab results, radiology results, the need for further work-up and treatment in the hospital. 10/07 19:39 Order name: Blood Culture Adult (2) sb4 10/07 19:39 Order name: CBC with Diff; Complete Time: 20:24 sb4 10/07 19:39 Order name: CMP; Complete Time: 20:29 sb4 10/07 19:39 Order name: Lactate w/ 2H reflex if indic.; Complete Time: 20:30 sb4 10/07 19:39 Order name: Protime (+inr); Complete Time: 20:24 sb4 10/07 19:39 Order name: Ptt, Activated; Complete Time: 20:24 sb4 10/07 19:39 Order name: Urinalysis w/ reflexes; Complete Time: 20:25 sb4 10/07 19:39 Order name: Lipase; Complete Time: 20:29 sb4 10/07 20:23 Order name: Glucose, Ancillary Testing; Complete Time: 20:24 EDMS 10/07 20:32 Order name: Ghost Lactate-NO COLLECT Timer; Complete Time: 23:47 EDMS 10/07 21:29 Order name: Lactate w/ 2H reflex if indic.: at 2200; Complete Time: 23:47 sb4 10/07 19:39 Order name: CT Abd/Pelvis - IV Contrast Only; Complete Time: 21:22 sb4 10/07 19:39 Order name: EKG; Complete Time: 19:40 sb4 10/07 19:39 Order name: Accucheck; Complete Time: 20:15 sb4 10/07 19:39 Order name: Cardiac monitoring; Complete Time: 20:04 sb4 10/07 19:39 Order name: EKG - Nurse/Tech; Complete Time: 20:04 sb4 10/07 19:39 Order name: IV Saline Lock - Large Bore; Complete Time: 20:04 sb4 10/07 19:39 Order name: Labs collected and sent; Complete Time: 20:04 sb4 10/07 19:39 Order name: O2 Per Protocol; Complete Time: 20:04 sb4 10/07 19:39 Order name: O2 Sat Monitoring; Complete Time: 20:04 sb4 10/07 19:39 Order name: Vital Signs; Complete Time: 20:04 sb4 10/07 21:27 Order name: NPO; Complete Time: 21:34 sb4 EC:37 Rate is 104 beats/min. Rhythm is regular, Sinus tachycardia. WI interval is normal at sb4 184 msec. QRS interval is normal at 78 msec. QT interval is normal at 348 msec. No Q waves. T waves are Normal. Clinical impression: Sinus tachycardia. Interpreted by me. Reviewed by me. Administered Medications: 20:15 Drug: NS 0.9% IV 1000 ml IV at 1000 ml once; to be given as a bolus over 60 minutes dd2 Route: IV; Rate: 1000 ml; Site: left antecubital; 21:15 Follow up: IV Status: Completed infusion; IV Intake: 1000ml vc1 20:15 Drug: morphine IVP or IV 4 mg IVP once over 4 mins Route: IVP; Infused Over: 4 mins; dd2 Site: left antecubital; 20:30 Follow up: Response: No adverse reaction dd2 20:15 Drug: Ondansetron IVP 4 mg IVP once; over 2 minutes Route: IVP; Site: left antecubital; dd2 20:30 Follow up: Response: No adverse reaction dd2 20:15 Drug: Acetaminophen PO 1000 mg PO once Route: PO; dd2 20:45 Follow up: Response: No adverse reaction vc1 21:34 Drug: Piperacillin-Tazobactam IVPB 3.375 grams IVPB once over 60 mins; (mix in NS 100 dd2 mL) Route: IVPB; Infused Over: 60 mins; Site: left antecubital; 22:17 Follow up: IV Status: Infusion continued upon admission vc1 Disposition Summary: 10/07/24 21:21 Hospitalization Ordered Notes: Hospitalization Status: Inpatient Admission sb4 Provider: Ricki Patel sb4 Location: Operating Room sb4 Condition: Serious sb4 Problem: new sb4 Symptoms: are unchanged sb4 Bed/Room Type: Standard sb4 Room Assignment: sb4 Diagnosis - Acute appendicitis with localized peritonitis sb4 - Severe sepsis without septic shock sb4 Forms: - Medication Reconciliation Form sb4 - SBAR form sb4 - Leadership Thank You Letter sb4 Signatures: Dispatcher [employer] EDLauryn Harrison PA-C PA-C sb4 Phyllis Hawley RN RN cm10 LIVIA MONTAÑO RN RN dd2 Jazmyne Betts RN vc1 Corrections: (The following items were deleted from the chart) 19:40 19:40 BLOOD CULTURE*+BA.LAB.BRZ ordered. EDMS EDMS 19:40 19:40 CBC+H.LAB.BRZ ordered. EDMS EDMS 19:40 19:40 COMPREHENSIVE METABOLIC PANEL+C.LAB.BRZ ordered. EDMS EDMS 19:40 19:40 LACTATE+C.LAB.BRZ ordered. EDMS EDMS 19:40 19:40 PROTIME (+INR)+COAG.LAB.BRZ ordered. EDMS EDMS 19:40 19:40 PTT, ACTIVATED+COAG.LAB.BRZ ordered. EDMS EDMS 19:40 19:40 Urinalysis+U.LAB.BRZ ordered. EDMS EDMS 19:40 19:40 LIPASE+C.LAB.BRZ ordered. EDMS EDMS 21:29 21:29 LACTATE+C.LAB.BRZ ordered. EDMS EDMS
--- NOTE | 2024-10-07 21:21 | RAD REPORT ---
EXAMINATION: CT ABDOMEN AND PELVIS WITH CONTRAST CLINICAL INDICATION: Male, 74 years old.ABD PAIN TECHNIQUE: CT abdomen and pelvis was performed, after the administration of IV contrast, [facility]. Axial, sagittal and coronal reconstructions were obtained. One or more of the following dose reduction techniques were used: Automated exposure control, adjustment of the mA and/o r kV according to patient size, and/or iterative reconstruction. Unless otherwise specified, incidental findings do not require dedicated imaging follow-up. [id number]. COMPARISON: 03/30/2015 FINDINGS: LOWER CHEST: No acute process identified.No significant pericardial effusion. Mild circumferential th ickening of the distal esophagus which could reflect esophagitis. UPPER GI: No significant abnormality. LIVER: Benign appearing low density liver lesions. No suspicious mass. GALLBLADDER/BILE DUCTS: No biliary ductal dilatation.? PANCREAS: No mass, ductal dilation, or bonnie-pancreatic fluid. SPLEEN: Unremarkable. ADRENALS: No adrenal masses. KIDNEYS AND URETERS: No hydronephrosis.Low density and/or too small to characterize renal lesions whi ch are statistically benign.No renal calculi. ABDOMINAL AORTA AND OTHER VESSELS: Normal caliber aorta and IVC. PERITONEUM: Nonspecific free fluid. LYMPH NODES: No pathologic lymphadenopathy. ABDOMINAL WALL: Left renal hernia repair SMALL BOWEL/COLON: Markedly dilated appendix measuring approximately 2 cm in diameter. There is an ap pendicolith at the base of the appendix. No free air or abscess identified.No bowel obstruction. Periappendiceal fluid. URINARY BLADDER: Underdistended but grossly unremarkable. REPRODUCTIVE ORGANS: Procedural changes of the prostate. Likely prior TURP MUSCULOSKELETAL: No acute or suspicious osseous abnormality. ADDITIONAL FINDINGS: None. IMPRESSION: Acute appendicitis. Significantly distended appendix measuring up to 2 cm. An appendicolith is also n oted at the base. THIS REPORT CONTAINS FINDINGS THAT MAY BE CRITICAL TO PATIENT CARE. The emergent findings were commun icated to DELBERT Combs on 10/07/2024 9:15 PM.
[2024-10-07] MEDS ORDERED: NA CHLORIDE 0.9% 100 ML ONE (21:23)
[2024-10-07] MEDS ORDERED: PIPERACIL/TAZO 3.375 GM VIAL IV ONE (21:23)
[2024-10-07] MEDS: SUCCINYLCHOLINE 20 MG/ML (10 ML) IV ONE (22:02)
[2024-10-07] MEDS: SUGAMMADEX SODIUM 200 MG/2 ML VIAL IV ONE (22:02)
[2024-10-07] MEDS ORDERED: LIDOCAINE 2% MPF 5 ML VIAL ONE (22:05)
[2024-10-07] MEDS ORDERED: ROCURONIUM 50 MG/5 ML VIAL IV ONE (22:05)
[2024-10-07] MEDS ORDERED: MIDAZOLAM HCL 2 MG/2 ML INJ ONE (22:05)
[2024-10-07] MEDS ORDERED: propofoL 200 MG/20 ML VIAL IV ONE (22:05)
[2024-10-07] MEDS ORDERED: FENTANYL CITR 100 MCG/2 ML ONE (22:05)
[2024-10-07] MEDS ORDERED: ONDANSETRON 4 MG/2 ML VIAL IV PRN (22:17)
[2024-10-07] MEDS ORDERED: ALBUTEROL 2.5 MG/3 ML NEB SOL NEB PRN (22:17)
[2024-10-07] MEDS: NA CHLORIDE 0.9% 1,000 ML ONE (22:36)
[2024-10-07] MEDS: LIDOCAINE HCL/EPINEPHRINE 20 ML MDV ONE (22:56)
--- NOTE | 2024-10-07 23:01 | P.HP ---
Certification for Inpatient Patient admitted to: Inpatient With expected LOS: >2 Midnights Practitioner: I am a practitioner with admitting privileges, knowledge of patient current condition, hospital course, and medical plan of care. Services: Services provided to patient in accordance with Admission requirements found in Title 42 Section 412.3 of the Code of Federal Regulations Patient History Date of Service: 10/07/24 Reason for admission: Acute Appendicitis History of Present Illness: 74 yrs old Male with past medical history of diabetes, hypertension, hyperlipidemia, TIA, smoker who was brought to ER with generalized weakness and abdominal pain which started 2 days ago and has been progressively getting worse. Pain initially was located in the lower abdomen which became more pronounced in the right lower quadrant associated with some nausea but no vomiting. Denies any fever or chills. No chest pain or shortness of breath. Patient also has some diarrhea associated with generalized weakness and was brought to ER. Patient also had a history inguinal hernia repair bilateral The patient patient was assessed in the ER and his workup was consistent with acute appendicitis and was admitted for further management and surgical consult Allergies No Known Allergies Allergy (Verified 11/05/23 09:42) Home medications list reviewed: Yes Home Medications: Amlodipine Besylate [Norvasc] 10 mg PO DAILY 11/05/23 Empagliflozin [Jardiance] 10 mg PO DAILY 11/05/23 Glimepiride 4 mg PO BID 11/05/23 Linagliptin [Tradjenta] 5 mg PO DAILY 11/05/23 Losartan/Hydrochlorothiazide [Losartan-Hctz 100-12.5 mg Tab] 1 each PO DAILY 11/05/23 Metformin HCl [Glucophage*] 1,000 mg PO BIDWM 11/05/23 Rosuvastatin Calcium 20 mg PO DAILY 11/05/23 Semaglutide [Ozempic] 1 mg SQ EVERY 7TH DAY 11/05/23 Tamsulosin HCl 0.4 mg PO BEDTIME 11/05/23 Codeine/APAP [Tylenol #3*] 1 tab PO Q6H PRN #12 tab 11/14/23 Smz./Tmp. [Bactrim Ds 800 MG/160 MG] 1 tab PO BID #10 tab 11/14/23 - Past Medical/Surgical History Diabetic: Yes Past Medical History: Reviewed- Non-Contributory -: diabetes -: hypertension -: smoker -: Tobacco abuse -: Possible COPD Past Surgical History: Reviewed- Non-Contributory -: hernia -: TURP Psychosocial/ Personal History: The patient is a . He has a girlfriend. He has 5 children. 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 - Family History Family History: Reviewed- Non-Contributory - Family History Mother -: Liver disease Father -: Heart disease - Social History Smoking Status: Current every day smoker Alcohol use: No CD- Drugs: No Caffeine use: Yes Review of Systems 10-point ROS is otherwise unremarkable Physical Examination - Vital Signs Temperature: 97.8 F Blood Pressure: 145/69 Pulse: 76 Respirations: 20 Pulse Ox (%): 94 - Physical Exam General: Alert, In no apparent distress, Oriented x3 HEENT: Atraumatic, Normocephalic Neck: Supple, 2+ carotid pulse no bruit Respiratory: Clear to auscultation bilaterally, Normal air movement Cardiovascular: No edema, Regular rate/rhythm, Normal S1 S2 Capillary refill: <2 Seconds Gastrointestinal: Soft and benign, W/out hepatosplenomegaly, Tenderness Musculoskeletal: No clubbing, No swelling Integumentary: No rashes Neurological: Normal strength at 5/5 x4 extr, Cranial nerves 3-12 intact, Normal reflexes 2+ Lymphatics: No axilla or inguinal lymphadenopathy - Studies Laboratory Data (last 24 hrs) 10/07/24 10/07/24 10/07/24 19:56 19:56 19:56 WBC 22.60 H Hgb 13.4 L Hct 39.0 L Plt Count 274 PT 12.1 INR 1.06 APTT 32.4 Sodium 135 L Potassium 3.7 BUN 14 Creatinine 1.13 Glucose 210 H Total Bilirubin 0.6 AST < 10 L ALT < 14 L Alkaline Phosphatase 111 Lipase 18 Assessment and Plan - Plan Acute appendicitis Sepsis due to acute appendicitis Lactic acidosis N.p.o. for now Pain control Surgical consult IV antibiotic Monitor closely IV hydration Hypertension Antihypertensives titrated Continue home medications and titrate as needed Hyperlipidemia Continue statin Diabetes Insulin sliding scale Accu-Chek before every meal and at bedtime Smoking advised cessation GI/DVT prophylaxis Advanced directive full code Discharge Plan: Home Plan to discharge in: 48 Hours - Advance Directives Does patient have a Living Will: No Does patient have a Durable POA for Healthcare: No - Code Status/Comfort Care Code Status: Full Code Time Spent Managing Pts Care (In Minutes): 54
--- NOTE | 2024-10-07 23:23 | P.OP ---
Preoperative diagnosis: Acute Appendicitis Postoperative diagnosis: Acute Appendicitis Primary procedure: Laparoscopic Appendectomy Anesthesia: GETA + Local Estimated blood loss: <5cc Specimen: Vermiform Appendix Findings: Dilated, Suppurative Non-Perforated appendicitis Complications: None Transferred to: Recovery Room Condition: Good
[2024-10-07] MEDS ORDERED: HYDROCODONE/APAP 5/325 MG TAB PO PRN (23:42)
[2024-10-07] MEDS: MEPERIDINE HCL 25 MG/ML SYR ONE (23:45)
--- NOTE | 2024-10-08 00:36 | CON ---
Date of Consultation: 10/07/2024 Brief Hpi: The patient is a 74-year-old male who presents with a 3-day history of abdominal pain in the periumbilical, now right lower quadrant. It got significantly worse over the course of several days. He thought it was something that he ate or perhaps a hernia as he has had bilateral he rnia repair in the past. He has noted bulging in the area, however, it is not in the region of this pain. The pain is predominantly localized in the right lower quadrant and is associated with fever, nausea, chills, and significant worsening of abdominal pain such that he could no longer tolerate and as such he came to the emergency room with the above-stated complaints. He denies sick contacts. N o recent travel, no new food exposures. Past Medical History: Significant for diabetes, hypertension, prostate issues, bilateral inguinal he rnias, TIA. Past Surgical History: Includes bilateral inguinal hernia repair, foot surgery, prostate biopsy. Allergies: NO KNOWN DRUG ALLERGIES. Medications: He denies taking blood thinners. Cannot remember his other medication list at this jarod e. He takes something for diabetes and hypertension. Review of Systems: A 10-point review of systems other than HPI denies. Social History: He admits to smoking a pack a day for greater than 50 years. Denies alcohol or recr eational drug use. Physical Examination: VITAL SIGNS: Pulse is 94, respiratory rate 16, pulse ox 96% on room air, blood pressure 163/73. General: He is awake, alert, and oriented. Psychiatric: Appropriate. Conversive. HEENT: Normocephalic. Sclerae icteric. Mucous membranes are moist. Oropharynx clear. Neck: Supple without JVD. Chest: Normal expansion and excursion. Cardiovascular: Regular rate and rhythm. Pulmonary: Clear to auscultation bilaterally. Abdomen: Soft with positive right lower quadrant tenderness to palpation, positive focal peritonitis . Positive rebound, positive guarding. Extremities: No clubbing, cyanosis, or edema. Skin: Warm and dry. Laboratory Data: Reveals a white blood cell count of , hemoglobin is 13.4, hematocrit 39.0 , platelet count is 274, neutrophils are 89%. PT , INR 1.06, PTT is 13.4. Sodium 135, pot assium 3.7, chloride 103, carbon dioxide is 25, BUN 14, creatinine 1.13. Lactic acid was 2.1, glucos e is 210, less than 10, less than 14, alkaline phosphatase 111, lipase is 18. Urinalysis shows turbidity, 1+ glucose, ketones and blood, trace yeast, 3+ total protein, urobilinoge n negative, bilirubin negative, leukocyte esterase negative. He had a CT scan performed of the abdomen and pelvis, which is officially read as a markedly dilated appendix measuring approximately 2 cm in diameter. There is an appendicolith at the base of the appe ndix. There is no free air abscess identified. No bowel obstruction the periappendiceal fluid is no dilan. Postprocedural changes of the prostate also noted likely TURP. Assessment/plan: A 74-year-old male who presents with signs and symptoms of acute appendicitis. 1. IV fluid hydration. 2. Antibiotic coverage. 3. I have explained the risks, benefits, and alternatives of laparoscopic possible open appendectomy including, but not limited to bleeding, infection, damage to surrounding tissue, need for further ope rative procedures. The patient displayed understanding of the above-stated plan and agreed to proceed as indicated. Thank you for this interesting consult. BEBE/MEI Voice ID: [id number] Report ID: [id number]
--- NOTE | 2024-10-08 00:41 | OP ---
Date of Procedure: 10/07/2024 Surgeon: Ronald Reno MD, Preoperative Diagnosis: Acute appendicitis. Postoperative Diagnosis: Acute appendicitis. Procedure: Laparoscopic appendectomy. Anesthesia: General endotracheal plus local with 0.25% Marcaine. Estimated Blood Loss: 5 cc. Specimens: Vermiform appendix. Findings: Dilated suppurative nonperforated appendicitis. Complications: None. Disposition: The patient was transferred to recovery room in good condition. Procedure In Detail: After informed consent was obtained, he was brought to the operating room, prep ped and draped in the usual sterile fashion. After adequate anesthesia was achieved, I anesthetized an area in the infraumbilical position down the subcutaneous tissue. 5-mm 0-degree optical trocar wa s introduced into the abdomen without incident or complication. Insufflation was obtained to 15 mmHg at this time. No injury to any vital structures upon entry into the abdomen. Epigastric trocar was then introduced. There was a 5 mm trocar placed under direct vision without incident or complicatio n. Right lower quadrant trocar was then introduced also under direct vision without incident or comp lication. A 12 mm trocar was then replaced into the infraumbilical trocar site. The patient was pos itioned head down right side up position. Ratcheted grasper was used to grasp the patient's appendix which was plastered to the right abdominal wall. This was dissected bluntly away from the edge. Me soappendiceal window was created using the LigaSure device. The LigaSure was quite dilated, enlarged , and had suppurative changes after the scar tissue was taken down using the LigaSure device. I used the Endo-CAROLINA 60 purple load across the base of the appendix at the confluence of the cecum. After t he mesenteric window was created, the stapler was fired with good apposition of tissues. No bleeding or other maneuvers required in this procedure. I then used the LigaSure to take the mesoappendix do wn without incident or complication, placed the appendix in an EndoCatch bag, removed through the umb ilical trocar site, sent off for pathologic examination. The area was copiously irrigated until comp letely clear. I suctioned out all effluent and irrigated the pelvis as well. All that fluid was suc tioned out. The patient was positioned back in neutral position. No additional suctioning was requi red as the effluent had been previously evacuated. I then closed the 12 mm trocar site using a Allegra rodriguez-[place] suture passer with an 0 Vicryl in an interrupted fashion with good approximation of tissue s. The abdomen was desufflated under direct visualization without incident or complication. Remaind er of trocars were removed. All skin incisions were then copiously irrigated with a 4-0 Monocryl in a running fashion. Dermabond was placed over top. The patient tolerated the procedure without incid ent or complication, transferred to PACU in good condition. All counts were correct at the end of e case. Additional Findings: The patient has bilateral recurrent inguinal hernias. Mesh is palpable in thes e hernias. BEBE/AWILDAL Voice ID: [id number] Report ID: [id number]
[2024-10-08] MEDS: PIPER TAZO 3.375 GM in NA CHLORIDE 0.9% 100 ML IV SCH (00:49)
[2024-10-08] MEDS: NA CHLORIDE 0.9% 1,000 ML IV SCH (00:49)
[2024-10-08 02:40] VITALS: BMI 22.4
[2024-10-08 06:21] LABS: Absolute Lymphocytes (CBC) 1.4 K/uL (0.7-4.9); Absolute Monocytes 0.9 K/uL (0.1-1.3); Absolute Neutrophil 16.1 K/uL (1.8-8.0); Basophils % 0.2 % (0-1.3); Hematocrit 31.5 % (39.6-49.0); Lymphocytes % 7.7 % (15.3-44.8); MCH 30.9 pg (27.0-35.0); MCV 88.2 fL (80-100); MPV 7.6 fL (7.6-11.3); Monocytes % 4.7 % (3.3-12.3); Neutrophils % 87.4 % (41.7-73.7); Platelets 220 thou/uL (152-406); RBC Red Blood Cell Count 3.58 M/uL (4.33-5.43); Red Cell Distribution Width 14.1 % (12.1-15.2)
[2024-10-08 06:44] LABS: Albumin 2.2 g/dL (3.4-5.0); Albumin/Globulin Ratio 0.8 (1.1-1.8); Alkaline Phosphatase 88 U/L (45-117); Anion Gap 8.8 mEq/L (5.0-15.0); BUN Blood Urea Nitrogen 16 mg/dL (7-18); Bicarbonate 25 mEq/L (21-32); Bilirubin Total 0.5 mg/dL (0.2-1.0); Globulin 2.7 g/dL (2.3-3.5); Glomerular Filtration Rate 77 ml/min (=/>90); Glucose Level 194 mg/dL (74-106); Potassium 3.8 mEq/L (3.5-5.1); Protein, Total 4.9 g/dL (6.4-8.2); Sodium Level 138 mEq/L (136-145)
[2024-10-08 06:46] LABS: ALT/SGPT < 14 U/L (16-61); AST/SGOT < 10 U/L (15-37)
[2024-10-08] MEDS ORDERED: D10W 125 ML IV PRN (08:01)
[2024-10-08] MEDS ORDERED: GLUCAGON 1 MG/VIAL IM PRN (08:01)
[2024-10-08 08:46] LABS: Atypical Lymphocytes 3 %; Blood Morphology Comment NOT SEEN (NOT SEEN); Differential Total Cells Count 100; Lymphocytes 2 % (15-42); Monocytes 9 % (0-10); Platelet Estimate ADEQ; Segmented Neutrophils 86 % (40-80)
[2024-10-08] MEDS: ENOXAPARIN 40 MG/0.4 ML SQ SCH (08:50)
[2024-10-08] MEDS: ACETAMINOPHEN 325 MG TABLET PO PRN (10:29)
[2024-10-08] MEDS: INSULIN REGULAR (HUMAN) 100 UNIT/ML SQ SCH (11:48)
--- NOTE | 2024-10-08 16:57 | P.PN ---
Subjective Date of Service: 10/08/24 Chief Complaint: Acute Appendicitis Patient underwent lap appendectomy yesterday. He has no fever He is tolerating liquid diet. He states his pain is well-controlled. Physical Examination - Vital Signs Temperature: 98.1 F Blood Pressure: 157/73 Pulse: 78 Respirations: 18 Pulse Ox (%): 97 - Studies Laboratory Data (last 24 hrs) 10/07/24 10/07/24 10/07/24 19:56 19:56 19:56 WBC 22.60 H Hgb 13.4 L Hct 39.0 L Plt Count 274 PT 12.1 INR 1.06 APTT 32.4 Sodium 135 L Potassium 3.7 BUN 14 Creatinine 1.13 Glucose 210 H Total Bilirubin 0.6 AST < 10 L ALT < 14 L Alkaline Phosphatase 111 Lipase 18 Assessment And Plan - Plan Physical examination General: Alert and oriented x3, NAD, HEENT: Conjunctiva not pale, anicteric sclera Neck: Supple, no elevated JVD Heart: Heart sounds 1 and 2 normal, regular rhythm, normal rate, no pedal edema Lungs: Clear to auscultation bilaterally, adequate breath sounds bilaterally, no rhonchi or crackles. Abdomen: Soft, nondistended, nontender, normal bowel sounds. Extremities: No tenderness, no deformity Skin: Normal skin turgor, no rash, no nodules or ulcers. Neuro: No focal motor deficit. Normal speech. Psychiatry: Normal mood, no agitation. Diagnosis Acute appendicitis status post lap appendectomy Sepsis due to acute appendicitis Lactic acidosis Status post lap appendectomy by Dr. Reno Patient with significant leukocytosis which trended down from yesterday. Continue IV Zosyn Analgesics as needed Diet advanced to soft consistency per surgery. Discontinue IV fluid. Hypertension Resume home antihypertensives. Diabetes melitis type II Insulin sliding scale Accu-Chek before every meal and at bedtime Hold home antidiabetics for now. Tobacco use Smoking cessation advised DVT prophylaxis: Lovejohannyx Advanced directive: full code
[2024-10-09] MEDS: HYDRALAZINE HCL 20 MG/ML VIAL IV PRN (00:50)
[2024-10-09 04:15] VITALS: O2SAT 96
[2024-10-09 06:33] LABS: Absolute Lymphocytes (CBC) 1.2 K/uL (0.7-4.9); Absolute Monocytes 0.5 K/uL (0.1-1.3); Absolute Neutrophil 9.9 K/uL (1.8-8.0); Basophils % 0.3 % (0-1.3); Eosinophils % 0.1 % (0-4.4); Hematocrit 34.4 % (39.6-49.0); Hemoglobin 11.9 g/dL (13.6-17.9); MCH 31.1 pg (27.0-35.0); MCHC 34.6 g/dL (32.0-36.0); MCV 89.9 fL (80-100); MPV 7.6 fL (7.6-11.3); Neutrophils % 85.6 % (41.7-73.7); Platelets 241 thou/uL (152-406); RBC Red Blood Cell Count 3.83 M/uL (4.33-5.43); Red Cell Distribution Width 14.7 % (12.1-15.2)
[2024-10-09 06:38] LABS: Anion Gap 6.5 mEq/L (5.0-15.0); Magnesium 1.7 mg/dL (1.6-2.4); Phosphorus 2.6 mg/dL (2.5-4.9); Potassium 3.5 mEq/L (3.5-5.1)
--- NOTE | 2024-10-09 08:13 | P.DS ---
Admission Date: 10/07/24 Discharge Date: 10/09/24 Disposition: ROUTINE DISCHARGE Discharge Condition: FAIR Reason for Admission: Acute Appendicitis Brief History of Present Illness: 74 yrs old Male with past medical history of diabetes, hypertension, hyperlipidemia, TIA, smoker who was brought to ER with generalized weakness and abdominal pain of 2 days duration. Symptoms associated with diarrhea. Patient was assessed in the ER and his workup was consistent with acute appendicitis and was admitted for further management and surgical consult. Hospital Course: Patient admitted to the medical floor and the following medical problems addressed: Acute appendicitis status post lap appendectomy Sepsis due to acute appendicitis Lactic acidosis Status post lap appendectomy by Dr. Reno Patient with significant leukocytosis which trended down significantly and almost resolved, Patient treated with IV Zosyn and transition to oral Augmentin on discharge. Patient tolerated soft diet Hypertension Resumed home antihypertensives. Diabetes melitis type II Blood sugar managed with insulin sliding scale. Home antidiabetic's resumed on discharge Tobacco use Smoking cessation advised Vital Signs/Physical Exam: Temp Pulse Resp BP Pulse Ox 98.9 F 80 16 186/88 H 99 10/09/24 04:00 10/09/24 04:00 10/09/24 04:00 10/09/24 04:00 10/09/24 04:00 General: Alert, In no apparent distress, Oriented x3 HEENT: Mucous membr. moist/pink Neck: Supple, JVD not distended Respiratory: Clear to auscultation bilaterally, Normal air movement Cardiovascular: No edema, Regular rate/rhythm, Normal S1 S2 Gastrointestinal: Soft and benign, Non-distended Musculoskeletal: No swelling Neurological: Normal strength at 5/5 x4 extr Laboratory Data at Discharge: WBC 11.60 thou/uL (4.3-10.9) H 10/09/24 05:51 Hgb 11.9 g/dL (13.6-17.9) L D 10/09/24 05:51 Hct 34.4 % (39.6-49.0) L 10/09/24 05:51 Plt Count 241 thou/uL (152-406) 10/09/24 05:51 PT 12.1 SECONDS (10-13.0) 10/07/24 19:56 INR 1.06 10/07/24 19:56 APTT 32.4 SECONDS (27.2-37.4) 10/07/24 19:56 Sodium 138 mEq/L (136-145) 10/09/24 05:51 Potassium 3.5 mEq/L (3.5-5.1) 10/09/24 05:51 BUN 13 mg/dL (7-18) 10/09/24 05:51 Creatinine 0.92 mg/dL (0.70-1.30) 10/09/24 05:51 Glucose 107 mg/dL (74-106) H 10/09/24 05:51 Phosphorus 2.6 mg/dL (2.5-4.9) 10/09/24 05:51 Magnesium 1.7 mg/dL (1.6-2.4) 10/09/24 05:51 Total Bilirubin 0.5 mg/dL (0.2-1.0) 10/08/24 06:07 AST < 10 U/L (15-37) L 10/08/24 06:07 ALT < 14 U/L (16-61) L 10/08/24 06:07 Alkaline Phosphatase 88 U/L (45-117) D 10/08/24 06:07 Lipase 18 U/L (13-75) 10/07/24 19:56 Home Medications: Amlodipine Besylate [Norvasc] 10 mg PO DAILY 11/05/23 Empagliflozin [Jardiance] 25 mg PO DAILY 11/05/23 Glimepiride 4 mg PO BID 11/05/23 Linagliptin [Tradjenta] 5 mg PO DAILY 11/05/23 Losartan/Hydrochlorothiazide [Losartan-Hctz 100-12.5 mg Tab] 12.5 - 100 mg PO DAILY 11/05/23 Metformin HCl [Glucophage*] 1,000 mg PO BIDWM 11/05/23 Rosuvastatin Calcium 20 mg PO DAILY 11/05/23 Semaglutide [Ozempic] 1 mg SQ EVERY 7TH DAY 11/05/23 Lipase/Protease/Amylase [Kavita Dr 36,000 Unit Capsule] 1 cap PO TID 10/08/24 tadalafiL [Tadalafil] 20 mg PO PRN 10/08/24 Amox/Clavulanate [Augmentin 875-125 Tab] 1 each PO BID #14 tab 10/09/24 Hydrocodone 5/APAP 325 [[place] 5/325*] 1 tab PO Q6H PRN #15 tab 10/09/24 New Medications: Amox/Clavulanate [Augmentin 875-125 Tab] 1 each PO BID #14 tab Hydrocodone 5/APAP 325 [[place] 5/325*] 1 tab PO Q6H PRN #15 tab PRN Reason: Pain Scale 5-7 (Moderate) Diet: ADA Activity: Ad cris Followup: Ronald Reno MD [ACTIVE - CAN ADMIT] - 1-2 Weeks Cristo Saleem DO [Primary Care Provider] - 1-2 Weeks Time spent managing pt's care (in minutes): 34
[2024-10-09 08:19] VITALS: BP 167/77; TEMP 99.1
[2024-10-09] MEDS ORDERED: ROSUVASTATIN 10 MG TAB PO SCH (09:00)
[2024-10-09] MEDS ORDERED: POTASSIUM CL SA 10 MEQ TAB PO ONE (09:00)
[2024-10-09] MEDS ORDERED: HOME MED 1 EA UNK (Losartan/Hydrochlorothiazide [Losartan-Hctz 100-12.5 Mg Tab] Tablet) PO SCH (09:00)
[2024-10-09] MEDS ORDERED: hydroCHLOROthiazide 12.5 MG CAP PO SCH (09:00)
[2024-10-09] MEDS ORDERED: AMLODIPINE 10 MG TAB PO SCH (09:00)
[2024-10-09] MEDS ORDERED: MAGNESIUM SULFATE 1 gm IVPB 1 GM/100 ML BAG IV ONE (09:00)
[2024-10-09] MEDS ORDERED: LOSARTAN POTASSIUM 50 MG TABLET PO SCH (09:00)
[2024-10-09] MEDS ORDERED: HOME MED 1 EA UNK (Empagliflozin [Jardiance] 10 MG Tablet) PO SCH (09:00)
--- NOTE | 2024-10-12 12:16 | EKG ---
Test Date: 2024-10-07 Test Time: 19:55:31 Sandblaster Glass: JANIA MEASUREMENT RESULTS: Intervals: Rate: 104 DC: 184 QRSD: 78 QT: 348 QTc: 457 [place]: P: 55 DC: 184 QRS: 0 T: 105 INTERPRETIVE STATEMENTS: Sinus tachycardia ST & T wave abnormality, consider lateral ischemia Abnormal ECG Compared to ECG 11/05/2023 09:56:11 ST (T wave) deviation now present Possible ischemia now present Sinus rhythm no longer present Sinus arrhythmia no longer present Electronically Signed On 10-12-24 12:05:56 CDT by Nba Pugh
== END 2024-10-09 09:53 | disposition home or self-care (01) | DRG 854 ==
LOC: ER 19:18 → 4TH 22:17 → UNDOADMIN 22:48 → 4TH 22:48
PROVIDERS: ADMIT Family Medicine; ATTEND Internal Medicine
PROC: 0DTJ4ZZ Resection of Appendix, Percutaneous Endoscopic Approach (ICD-10-PCS; principal; 2024-10-07 23:00)
DX: A41.9 Sepsis, unspecified organism (principal); E87.21 Acute metabolic acidosis; K35.80 Unspecified acute appendicitis; I10 Essential (primary) hypertension; E11.9 Type 2 diabetes mellitus without complications; Z79.4 Long term (current) use of insulin; R65.20 Severe sepsis without septic shock; Z72.0 Tobacco use; J44.9 Chronic obstructive pulmonary disease, unspecified
CPT/HCPCS: 36415; 74177; 80048; 80053; 81001; 82947; 83605; 83690; 83735; 84100; 85025; 85610; 85730; 87040; 88304; 93005; 94760; 96361; 96365; 96375; 99285; A4314; J0360; J1650; J1815; J2003; J2175; J2250; J2405; J2543; J2704; J3010; J7030; Q9967